=== PATIENT | female | born 1945 | race Caucasian/White ===

== ENCOUNTER 2020-12-08 18:13 | Emergency (ER) | payer OTHER ==
--- OUTSIDE RECORDS SUMMARY | 2020-12-08 18:16 | XMS REPORT | Continuity of Care Document ---
:1945 Author Organization [facility] t Address [address] [place] [address] Care Team Providers Name Role Phone Alec ROBIN Primary Care Physician Unavailable Alec Robin MD Attending Clinician Ari Mcconnell MD Attending Clinician Arminda Stuart Attending Clinician Daksha GRIFFITHS Attending Clinician Ky Mcghee MD Attending Clinician Kai Whitten Attending Clinician Liliana Brizuela MD Attending Clinician Keagan Gonzalez CRNA Attending Clinician DAQUAN Admitting Clinician Unavailable Payers Payer Name Policy Type Policy Effective Date Expiration Date Sour ce Number AETNA MEDICAREAETNA [id number] 2013 MD Julieta rodriguez MEDICARE 00:00:00 [id number] -PresentMedicare AETNA MEDICAREAETNA [id number] 2013 [place] MEDICARE HMO/PPO 00:00:00 Ken keene [id number] -PresentHMO Problems Condition Condition Condition Status Onset Resolution Last Treating Co mments Source Name Details Category Date Date Treatment Clinician Date Trigger Trigger Disease Active [place] finger of finger of 1-09 Meth willa left thumb left thumb 00:00: st 00 Tendinitis Tendinitis Disease Active [place] of finger of finger 09 Meth willa 00:00: st 00 Scar Scar Disease Active conditions conditions 2-27 An derso and and 00:00: n fibrosis fibrosis 00 of skin of skin Stiffness Stiffness Disease Active MD of right of right 2-27 Marcello o shoulder shoulder 00:00: n 00 Pain in Pain in Disease Active MD right right - Anderso shoulder shoulder 00:00: n 00 Generalize Generalize Disease Active M D d muscle d muscle 10-09 [place] o weakness weakness 00:00: n 00 Cervicalgi Cervicalgi Disease Active M D a a 10-09 Anderso 00:00: n 00 Malignant Malignant Disease Active neoplasm neoplasm - [place]o o of of 00:00: n upper-oute upper-oute 00 r quadrant r quadrant of right of right female female breast breast Estrogen Estrogen Disease Active receptor receptor 6- [place] o positive positive 00:00: n status status 00 (ER+) (ER+) Allergies, Adverse Reactions, Alerts Allergy Allergy Status Severity Reaction(s) Onset Inactive Treating Comm ents Source Name Type Date Date Clinician Morphine Propensi Active Other (See Uli wynne ty to Comments) Methodi adverse st reaction s to drug Family History Family Member Diagnosis Comments Start Date Stop Date Source Natural father Diabetes MD Fleming n Maternal aunt -Breast cancer MD Nagel rsdereje Maternal uncle -Genitourinary (Bladder, MD Augustin Kidney, Prostate, Testicle) Natural mother Hypertension Hardy son Natural sister -Endocrine (Thyroid, MD Augustin Pituitary, Adrenal) Social History Social Habit Start Date Stop Date Quantity Comments Source Sex Assigned At MD Armendariz on Tobacco use and 2020-04-30 2020-04-30 Never used MD Armendariz on exposure 00:00:00 00:00:00 Alcohol intake 2020-04-30 2020-04-30 Current drinker of MD Augustin 00:00:00 00:00:00 alcohol (finding) Alcohol Comment 2017-03-28 2017-03-28 occasional Sandy M ethodist 00:00:00 00:00:00 Smoking Status Start Date Stop Date Source Never smoker MD Augustin Medications Ordered Filled Start Stop Current Ordering Indication Dosage Frequency Signature Comments Components Source Medication Medication Date Date Medication? Clinician (SIG) Name Name paresh Yes 1{tbl} Take 1 MD n (LIPITOR) 3-18 tablet by And erso 40 mg 15:43: mouth n tablet 37 daily. clopidogrel Yes 1{tbl} Take 1 MD (PLAVIX) 75 3-18 tablet by And erso mg tablet 15:43: mouth n 37 daily. gabapentin Yes restless 400mg Take 400 MD (NEURONTIN) 3-18 leg mg by Anderso 300 mg 15:43: syndrome mouth 3 n capsule 37 (three) times a day. UNABLE TO Yes 1{capsu Take 1 MD FIND 3-18 le} capsule by Anderso 15:43: mouth n 37 daily. Sinu-Pro 6 UNABLE TO Yes 1{tbl} Take 1 MD FIND 3-18 tablet by Anderso 15:43: mouth n 37 daily. Curaphen-c urcumin UNABLE TO Yes 1{capsu Take 1 MD FIND 3-18 le} capsule by Anderso 15:43: mouth n 37 daily. Mitochondr ial energy booster coenzyme Yes 100mg Take 100 MD Q10 (CO 3-18 mg by AndAlediao Q-10) 100 15:43: mouth n mg capsule 37 daily. glucosam-ch Yes 1{tbl} Take 1 MD ond-hrb 3-18 tablet by Anderso 149-hyal ac 15:43: mouth n (GLUCOS 37 daily. CHOND CPLX ADVANCED) 750 mg-100 mg- 125 mg-1.65 mg tab cholecalcif Yes 1000U Take 1,000 MD marques, 3-18 Units by Anderso vitamin D3, 15:43: mouth n (VITAMIN 37 daily. D3) 1,000 unit capsule celecoxib Yes 50mg Take 50 mg MD (CeleBREX) 3-18 by mouth Hardy so 50 mg 15:43: daily. n capsule 37 traMADol 2020- No 50mg Take 50 mg MD (ULTRAM) 50 9-18 09-18 by mouth And erso mg tablet 15:04: 00:00 twice n 26 :00 daily. anastrozole Yes Infiltratin 1mg Take 1 MD (ARIMIDEX) 9-18 g duct tablet (1 An derso 1 mg tablet 00:00: carcinoma mg) by n 00 of upper mouth outer daily. quadrant of right female breast irbesartan 2019-0 Yes 1{tbl} Take 1 Diaz ston (AVAPRO) 9-10 tablet by Method i 150 MG 10:33: mouth. st tablet 25 gabapentin 2020-0 Yes 300mg [id number] Take 300 Sandy (NEURONTIN) 9-10 [id number] mg by M ethodi 300 mg 10:33: 3D mouth 3 st capsule 25 (three) times a day. gabapentin 2020-0 Yes 400mg Take 400 [place] (NEURONTIN) 9-10 mg by Methodi 300 mg 10:33: mouth. st capsule 25 clopidogreL 2019-0 Yes clopidogre Du (PLAVIX) 75 9-10 l 75 mg Metho di mg tablet 10:33: tablet st 25 traMADoL 2020- No acute pain 50mg Q6H Take 1 Du (ULTRAM) 50 9-10 09-20 tablet (50 M ethodi mg tablet 00:00: 23:59 mg total) st 00 :00 by mouth every 6 (six) hours as needed for moderate pain for up to 10 days .acute pain. anastrozole 2020- No Infiltratin 1mg Take 1 MD (ARIMIDEX) 3-18 09-18 g duct tablet (1 A nderso 1 mg tablet 00:00: 00:00 carcinoma mg) by n 00 :00 of upper mouth outer daily. quadrant of right female breast atorvastati Yes Beulah rodriguez n (LIPITOR) 8-14 Methodi 40 MG 00:00: st tablet 00 clopidogrel Yes Beulah n (PLAVIX) 75 6-15 Methodi mg tablet 00:00: st 00 letrozole Yes 2.5mg Take 2.5 Diaz ston (FEMARA) 3-13 mg by Methodi 2.5 mg 00:00: mouth. st chemo 00 tablet Immunizations Ordered Immunization Filled Immunization Date Status Commen ts Source Name Name PFIZER COVID-19 MRNA 2020-09-29 Completed [place] VACCINATION 00:00:00 [facility] PFIZER COVID-19 MRNA 2020-09-08 Completed [place] VACCINATION 00:00:00 [facility] Vital Signs Vital Name Observation Time Observation Value Comments Source Systolic blood 2020-10-28 15:39:33 128 mm[Hg] MD Angela thompsondereje pressure Diastolic blood 2020-10-28 15:39:33 66 mm[Hg] Julieta derson pressure Heart rate 2020-10-28 15:39:33 84 /min Hardy roth Body temperature 2020-10-28 15:39:33 36.39 Juli Karolina kwonon Respiratory rate 2020-10-28 15:39:33 18 /min MD Turcios cheron Body weight 2020-10-28 15:39:33 82.4 kg Hardy roth BMI 2020-10-28 15:39:33 34.55 kg/m2 Hardy roth Oxygen saturation in 2020-10-28 15:39:33 100 /min MD Augustin Arterial blood by Pulse oximetry Body height 2020-10-28 14:06:00 154.4 cm Hardy roth Systolic blood 2020-04-22 10:15:00 151 mm[Hg] [place] [facility] pressure Diastolic blood 2020-04-22 10:15:00 70 mm[Hg] [place] [facility] pressure Heart rate 2020-04-22 10:15:00 51 /min [place] [facility] Body temperature 2020-04-22 10:15:00 36.06 Juli [place] [facility] Respiratory rate 2020-04-22 10:15:00 15 /min [place] [facility] Oxygen saturation in 2020-04-22 10:15:00 98 /min [place] [facility] Arterial blood by Pulse oximetry Body height 2020-04-22 07:36:00 160 cm [place] [facility] Body weight 2020-04-22 07:36:00 82.827 kg [place] [facility] BMI 2020-04-22 07:36:00 32.35 kg/m2 [place] [facility] Procedures Procedure Date / Time Performing Clinician Source Performed DEXA BONE MINERAL DENSITY 2020-10-28 14:45:53 Nicole Mix MD BOTH HIPS AND SPINE URIC ACID 2020-10-28 14:43:00 Nicole Mix MD Robe rson VITAMIN D 25 HYDROXY LEVEL 2020-10-28 14:43:00 Nicole Mix MD Results CBC 2020-10-28 14:43:00 Nicole Mix MD Robe rson MANUAL DIFFERENTIAL 2020-10-28 14:43:00 Nicole Mix MD GLUCOSE LEVEL 2020-10-28 14:43:00 Nicole Mix MD Robe rson BLOOD UREA NITROGEN 2020-10-28 14:43:00 Nicole Mix MD ELECTROLYTE PANEL 2020-10-28 14:43:00 Nicole Mix MD derson SERUM CREATININE 2020-10-28 14:43:00 Nicole Mix MD And erson .GLOMERULAR FILTRATION RATE 2020-10-28 14:43:00 Nicole Mix MD CALCIUM LEVEL TOTAL 2020-10-28 14:43:00 Nicole Mix MD ALBUMIN LEVEL 2020-10-28 14:43:00 Nicole Mix MD Robe rson ALKALINE PHOSPHATASE 2020-10-28 14:43:00 Nicole Mix MD ALANINE AMINOTRANSFERASE 2020-10-28 14:43:00 Nicole Mix MD ASPARTATE AMINOTRANSFERASE 2020-10-28 14:43:00 Nicole Mix MD TOTAL PROTEIN 2020-10-28 14:43:00 Nicole Mix MD Robe rson FRACTIONATED BILIRUBIN 2020-10-28 14:43:00 Nicole Mix MD COMPLETE BLOOD COUNT W/ 2020-10-28 14:43:00 Nicole Mix MD DIFFERENTIAL COMPREHENSIVE METABOLIC 2020-10-28 14:43:00 Nicole Mix MD PANEL LACTATE DEHYDROGENASE 2020-10-28 14:43:00 Nicole Mix MAGNESIUM LEVEL 2020-10-28 14:43:00 Nicole Mix MD Robe rson PHOSPHORUS LEVEL 2020-10-28 14:43:00 Nicole Mix MD And erson RI AN PERIPHERAL BLOCK 2020-04-22 09:11:59 Compa Gonzalez PROCEDURE FOR PAIN RELEASE, TENDON, HAND, FOR 2020-04-22 09:03:00 Victoriano Mcghee DEQUERVAIN'S TENOSYNOVITIS RI INJECT TENDON 2020-03-30 08:45:00 Victoriano Mcghee Me [facility] SHEATH/LIGAMENT OSI US BREAST 2019-12-17 13:06:00 Lesley Robin MD Hardy son OSI MAMMO BILATERAL 2019-12-17 13:05:45 Lesley Robin MD Plan of Care Planned Activity Planned Date Details Comments Source Future Scheduled 2021-03-13 INFLUENZA VACCINE [place] [facility] Test 00:00:00 [code = INFLUENZA VACCINE] Future Scheduled 2011-12-30 65+ PNEUMOCOCCAL [place] [facility] Test 00:00:00 VACCINE (1 of 1 - PPSV23) [code = 65+ PNEUMOCOCCAL VACCINE (1 of 1 - PPSV23)] Future Scheduled 1996 BREAST CANCER [facility] thodist Test 00:00:00 SCREENING [code = BREAST CANCER SCREENING] Future Scheduled 1996 COLONOSCOPY SCREENING [facility] Test 00:00:00 [code = COLONOSCOPY SCREENING] Future Scheduled 1996 SHINGLES VACCINES (#1) [place] [facility] Test 00:00:00 [code = SHINGLES VACCINES (#1)] Future Scheduled 1964 Hepatitis C screening [place] [facility] Test 00:00:00 (procedure) [code = 324221226] Encounters Start End Encounter Admission Attending Care Care Encounter Source Date/Time Date/Time Type Type Clinicians Facility Department ID 2020-09-29 2020-09-29 Outpatient [facility] [id number] [place] 00:00:00 00:00:[address] 2020-09-08 2020-09-08 Outpatient [facility] [id number] [place] 00:00:00 00:00:[address] 2020-05-04 2020-05-04 Outpatient [facility] [id number] [place] 00:00:00 00:00:00 VICTORIANO [address] 2020-04-22 2020-04-22 Outpatient [facility] [id number] [place] 00:00:00 00:00:00 VICTORIANO [address] 2020-03-30 2020-03-30 Outpatient [facility] [id number] [place] 00:00:00 00:00:00 VICTORIANO [address] 2019-12-03 2019-12-03 Outpatient [facility] [id number] [place] 00:00:00 00:00:00 VICTORIANO [address] Results Test Test Test Results Result Source Description Time Comments Comments OSI US Breast 2020-10- Study acquired at another [facility] institution. For comparison 13:06:08 only. No [facility] originated interpretation requested or available. OSI Mammo 2020-10- Study acquired at another [facility] 23 institution. For comparison 13:05:53 only. No [facility] originated interpretation requested or available. NM Bone Mineral 2020-10- Osteopenia, based on MD Augustin Density Both 18 measurements of the left Hips and Spine 15:16:06 femoral neck. I personally reviewed these image(s) along with the resident's/fellow's interpretations, certify that if a procedure was performed I was physically present, and agree with the final report.Interface, Radiology Results In - 10/28/2020 10:18 AM CDTExamination: Bone Mineral Density (DXA), 10/28/2020linical History: 74-year-old postmenopausal woman with breast cancer on hormone therapy.Indication: Assessment of bone mineral density..Comparison: None.Technique: Bone mineral density was obtained using Hologic dual-energy X-ray absorptiometry.Findings: The findings are provided in the below table(s).FULL RESULT:Bone Density: --Region Exam Date BMD T- Z- g/cm2 Score Score A P Spine (L1-L4) 10/28/2020 0.983 -0.6 1.7 Femoral Neck (Left) 10/28/2020 0.708 -1.3 0.7 Total Hip (Left) 10/28/2020 0.937 0.0 1.7 Femoral Neck (Right) 10/28/2020 0.733 -1.0 1.0 Total Hip (Right) 10/28/2020 0.931 -0.1 1.6 For postmenopausal women and men age 50 and over, the World Health Organization criteria for BMD interpretation classify patients as: Normal (T-score at or above -1.0), Osteopenia (T-score between -1.0 and -2.5), or Osteoporosis (T-score at or below -2.5). IMPRESSION:Osteopenia, based on measurements of the left femoral neck.I personally reviewed these image(s) along with the resident's/fellow's interpretations, certify that if a procedure was performed I was physically present, and agree with the final report. Peripheral 2020-04- Compa Gonzalez CRNA [facility] Block 10 04/22/2020 9:13 [facility] 09:11:59 AMPeripheral BlockPerformed by: Compa Gonzalez CRNAAuthorized by: Paz Brizuela MD Patient Location: [facility] Time: 04/22/2020 9:12 AMEnd Time: 04/22/2020 9:15 AMReason for Block: at surgeon's request Staff: Anesthesiologist: Paz Brizuela MD Resident/CROSS CUT SAWYER/AA: Compa Gonzalez CRNA Performed by: AnesthesiologistPreprocedur e: patient identified, IV checked, site and side verified, risks and benefits discussed, procedure verified, surgical consent complete, patient position confirmed, monitors and equipment checked, pre-op evaluation complete, site marked and timeout performed prior to procedure Peripheral Nerve Block: Patient Position: Supine Prep: alcohol swabs Monitoring: Heart rate, CO2, blood pressure monitoring and continuous pulse oximetryBlock Type: [place] blockLaterality: LeftInjection Technique: Single injectionNeedle: Needle Gauge: 22 GAssessment: Injection Assessment: No symptoms of intraneural/intravenous injection Paresthesia Pain: None Heart Rate Change: No Slow Fractionated Injection: Yes Block outcome: No apparent complications, patient comfortable and patient tolerated procedure wellNotes: L-UE ESMARC EXSANG/TOOUR UPX2/IV LIDOCAINE Hand/Upper Victoriano Mcghee MD [facility] ton Extremity 18 03/30/2020 8:51 [facility] Injection/Arthr 08:45:00 AMHand/Upper Extremity ocentesis: L Injection/Arthrocentesis: L extensor extensor compartment compartment 1 1Date/Time: 03/30/2020 8:50 AMConsent given by: patientSupporting DocumentationIndications: pain Procedure DetailsSite: L extensor compartment 1 Left side:Needle size: 25 GApproach: lateralPatient tolerance: patient tolerated the procedure well with no immediate complicationsLeft Extensor Compartment 1 Medications administered:1 mL lidocaine 10 mg/mL (1 %); 6 mg betamethasone acetate & sodium phosphate 6 mg/mL
--- NOTE | 2020-12-08 19:29 | RAD REPORT ---
EXAM DESCRIPTION: CT - [id number] - 12/08/2020 7:01 pm CLINICAL HISTORY: Trauma, head and neck injury. fall COMPARISON: [id number] dated 02/11/2012 TECHNIQUE: Axial 5 mm thick images of the head were obtained. Axial 2 mm thick images of the cervical spine were obtained with sagittal and coronal reconstruction images generated and reviewed. All CT scans are performed using dose optimization technique as appropriate and may include automated exposure control or mA/KV adjustment according to patient size. FINDINGS: CT HEAD WITHOUT CONTRAST: No acute hemorrhage, hydrocephalus or extra-axial collection is identified.No areas of brain edema or midline shift. The paranasal sinuses and mastoids are clear.The calvarium is intact. CT CERVICAL SPINE WITHOUT CONTRAST: No fracture or subluxation.Moderate midcervical degenerative changes.No prevertebral soft tissues swe lling is identified. IMPRESSION: No acute intracranial or cervical spine findings.
--- NOTE | 2020-12-08 19:44 | RAD REPORT ---
EXAM DESCRIPTION: RAD - Shoulder Right 2 View - 12/08/2020 7:38 pm CLINICAL HISTORY: fall COMPARISON: No comparisons FINDINGS: Mild AC joint and glenohumeral joint arthritic changes are present. No acute fracture or d islocation seen.
--- NOTE | 2020-12-08 19:48 | RAD REPORT ---
EXAM DESCRIPTION: RAD - Elbow Right 3 View - 12/08/2020 7:38 pm CLINICAL HISTORY: fall Trauma, fall COMPARISON: No comparisons FINDINGS: No acute fracture or dislocation seen.
--- NOTE | 2020-12-08 20:24 | ER ---
Nurse's Notes [facility] Name: Maribell Galindo Age: 74 yrs Sex: Female : 1945 Arrival Date: 12/08/2020 Time: 18:17 Bed 8 Private MD: Diagnosis: Strain of muscle(s) and tendon(s) of the rotator cuff of shoulder;Unspecified injury of head Presentation: 12/08 18:42 Chief complaint: Patient states: tripped on carpet about 1 hour ago, reports landing on em the right shoulder and hitting head, also reports neck pain, pt takes Plavix for prior CVA, denies dizziness or blurred vision. Coronavirus screen: Client denies travel out of the [place] in the last 14 days. Ebola Screen: Patient negative for fever greater than or equal to 101.5 degrees Fahrenheit, and additional compatible Ebola Virus Disease symptoms Patient denies exposure to infectious person. Patient denies travel to an Ebola-affected area in the 21 days before illness onset. No symptoms or risks identified at this time. Initial Sepsis Screen: Does the patient meet any 2 criteria? No. Patient's initial sepsis screen is negative. Does the patient have a suspected source of infection? No. Patient's initial sepsis screen is negative. Risk Assessment: Do you want to hurt yourself or someone else? Patient reports no desire to harm self or others. Onset of symptoms was December 08, 2020. 18:42 Method Of Arrival: Ambulatory em 18:42 Acuity: BINTA 3 em 18:50 Care prior to arrival: None. Mechanism of Injury: Fall from standing position. Trauma sv event details: Injury occurred in the [facility], Injury occurred: at home. Injury occurred: December 08, 2020. Trauma Activation: Alert Physician: ED Physician; Name: Billy SANCHEZ; Notified At: 18:46; Arrived At: 18:49 Physician: General Surgeon; Name: ; Notified At: 18:46; Arrived At: Physician: Radiology; Name: Yuko; Notified At: 18:46; Arrived At: 18:49 Physician: Respiratory; Name: ; Notified At: 18:46; Arrived At: Physician: Nahum; Name: ; Notified At: 18:46; Arrived At: Historical: - Allergies: 18:45 Morphine (Respiratory distress); em - Home Meds: 18:45 Plavix 75 mg Oral tab 1 tab once daily for Myocardial Infarction Prevention [Active]; em - PMHx: 18:45 Hyperlipidemia; Hypertension; neuropathy pain; CVA; em - PSHx: 18:45 Hysterectomy; Carpal Tunnel Repair; back surgery; em - Immunization history:: Adult Immunizations up to date. - Social history:: Smoking status: Patient denies any tobacco usage or history of. - Immunization history: Last tetanus immunization: unknown. Screenin:12 Abuse screen: Denies threats or abuse. Nutritional screening: No deficits noted. vg1 Tuberculosis screening: No symptoms or risk factors identified. Fall Risk Fall in past 12 months (25 points). No secondary diagnosis (0 pts). No IV (0 pts). Ambulatory Aid- None/Bed Rest/Nurse Assist (0 pts). Gait- Normal/Bed Rest/Wheelchair (0 pts) Mental Status- Oriented to own ability (0 pts). Total Andrade Fall Scale indicates Low Risk Score (25-44 pts). Fall prevention measures have been instituted. Side Rails Up X 2 Placed close to Nursing Station 1:1 attendant Assigned to Pt. Family Present and informed to notify staff if they need to leave bedside. Primary Survey: 19:13 NO uncontrolled hemorrhage observed. Breathing/Chest: Respiratory pattern: regular, vg1 Respiratory effort: spontaneous. Circulation: Pulses: palpable right radial artery and left radial artery. Disability Alert. 21:00 Exposure/Environment: All clothing and personal items were removed. Forensic evidence wh collection is not deemed to be indicated at this time. Items placed in patient belonging bag. There is no evidence of uncontrolled external bleeding. No obvious injuries are noted at this time. Reassessment Airway Airway Patent Breathing/Chest Respiratory pattern Regular Respiratory effort Spontaneous Unlabored Chest inspection Symmetrical Circulation Color Geiger Disability Alert. Assessment: 18:52 Reassessment: Xray at the bedside. sv 19:10 General: Appears in no apparent distress. uncomfortable, Behavior is calm, cooperative. vg1 Pain: Complains of pain in Right Shoulder and right side of neck Pain currently is 10 out of 10 on a pain scale. Pain began 1 hour ago. Alleviated by rest, Aggravated by repositioning. Neuro: Level of Consciousness is awake, alert, obeys commands, Oriented to person, place, time, situation, Denies blurred vision dizziness, headache. Cardiovascular: Patient's skin is warm and dry. Respiratory: Airway is patent Respiratory effort is even, unlabored. GI: No signs and/or symptoms were reported involving the gastrointestinal system. : No signs and/or symptoms were reported regarding the genitourinary system. EENT: No signs and/or symptoms were reported regarding the EENT system. Derm: Skin is intact, is healthy with good turgor. Musculoskeletal: Circulation, motion, and sensation intact. 20:09 Reassessment: Patient appears in no apparent distress at this time. No changes from vg1 previously documented assessment. Patient and/or family updated on plan of care and expected duration. Pain level reassessed. Patient is alert, oriented x 3, equal unlabored respirations, skin warm/dry/pink. 20:59 Reassessment: Patient appears in no apparent distress at this time. Patient and/or wh family updated on plan of care and expected duration. Pain level reassessed. Patient is alert, oriented x 3, equal unlabored respirations, skin warm/dry/pink. Vital Signs: 18:42 BP 163 / 87; Pulse 63; Resp 20; Temp 97.2; Pulse Ox 100% on R/A; Weight 79.38 kg; em Height 5 ft. 0 in. (152.40 cm); Pain 4/10; 19:11 BP 135 / 77; Pulse 63; Resp 18; Pulse Ox 99% on R/A; vg1 20:59 BP 135 / 79; Pulse 60; Resp 18; Pulse Ox 98% on R/A; wh 18:42 Body Mass Index 34.18 (79.38 kg, 152.40 cm) em [place] Coma Score: 18:42 Eye Response: spontaneous(4). Verbal Response: oriented(5). Motor Response: obeys sv commands(6). Total: 15. Trauma Score (Adult): 18:42 Eye Response: spontaneous(1); Verbal Response: oriented(1); Motor Response: obeys sv commands(2); Systolic BP: > 89 mm Hg(4); Respiratory Rate: 10 to 29 per min(4); [place] Score: 15; Trauma Score: 12 ED Course: 18:17 Patient arrived in ED. mr 18:44 Triage completed. em 18:45 Arm band placed on. em 18:46 Billy Vergara PA is PHCP. [facility] 18:46 Israel Faustin MD is Attending Physician. [facility] 18:52 Yuko Dan, RN is Primary Nurse. vg1 18:[address] via stretcher. vg1 19:01 CT Head C Spine In Process Unspecified. EDMS 19:12 Patient has correct armband on for positive identification. Bed in low position. Call vg1 light in reach. Side rails up X2. Adult w/ patient. 19:12 Patient maintains SpO2 saturation greater than 95% on room air. vg1 19:38 Shoulder Right (2 View) XRAY In Process Unspecified. EDMS 19:38 Elbow Right 3 View XRAY In Process Unspecified. EDMS 20:59 No provider procedures requiring assistance completed. Patient did not have IV access wh during this emergency room visit. 21:02 Thermoregulation: warm blanket given to patient. Administered Medications: No medications were administered Intake: 18:42 PO: 0ml; Total: 0ml. sv Output: 18:42 Urine: 0ml; Total: 0ml. sv Outcome: 20:24 Discharge ordered by . [facility] 21:02 Discharged to home ambulatory, with family. 21:02 Condition: stable 21:02 Discharge instructions given to patient, family, Instructed on discharge instructions, follow up and referral plans. medication usage, POC Demonstrated understanding of instructions, follow-up care, medications, POC Prescriptions given X 1. 21:02 Patient's length of stay was not longer than 2 hours. 21:02 Patient left the ED. Signatures: Dispatcher [employer] EDMS Angelina Ellington, Billy Conrad RN, PA PA jmm Rivera, Mary Tomy Nguyen, Brigitte Kaur RN, RN RN wh Garcia, Victoria, FRANCIA RN 1
--- NOTE | 2020-12-08 20:25 | EDPHYS ---
Physician Documentation [facility] Name: Maribell Galindo Age: 74 yrs Sex: Female : 1945 Arrival Date: 12/08/2020 Time: 18:17 Bed 8 Private MD: ED Physician Israel Faustin HPI: 12/08 18:50 This 74 yrs old Female presents to ER via Ambulatory with complaints of Fall jmm Injury, Arm Pain. 18:50 Details of fall: The patient fell from an upright position. Onset: The symptoms/episode jmm began/occurred acutely, just prior to arrival. Associated injuries: The patient sustained injury to the head, right shoulder. The patient has not experienced similar symptoms in the past. This is a 74 year old female with a history of hlp, htn, cva that presents ot the ED with complaints of right sided headache. Patient states she landed on the right sided shoulder pain. Denies other injury. . Historical: - Allergies: 18:45 Morphine (Respiratory distress); em - Home Meds: 18:45 Plavix 75 mg Oral tab 1 tab once daily for Myocardial Infarction Prevention [Active]; em - PMHx: 18:45 Hyperlipidemia; Hypertension; neuropathy pain; CVA; em - PSHx: 18:45 Hysterectomy; Carpal Tunnel Repair; back surgery; em - Immunization history:: Adult Immunizations up to date. - Social history:: Smoking status: Patient denies any tobacco usage or history of. - Immunization history: Last tetanus immunization: unknown. ROS: 18:50 Constitutional: Negative for fever, chills, and weight loss, Cardiovascular: Negative jmm for chest pain, palpitations, and edema, Respiratory: Negative for shortness of breath, cough, wheezing, and pleuritic chest pain. 18:50 MS/extremity: Positive for injury or acute deformity. 18:50 Neuro: Positive for headache. 18:50 All other systems are negative. Exam: 18:50 Constitutional: This is a well developed, well nourished patient who is awake, alert, jmm and in no acute distress. Head/Face: atraumatic. Eyes: EOMI, no conjunctival erythema appreciated ENT: Moist Mucus Membranes Neck: Trachea midline, Supple Chest/axilla: Normal chest wall appearance and motion. Cardiovascular: Regular rate and rhythm. No edema appreciated Respiratory: Normal respirations, no respiratory distress appreciated Abdomen/GI: Non distended, soft Back: Normal ROM Skin: General appearance color normal 18:50 Musculoskeletal/extremity: ROM: limited active range of motion due to pain, Circulation is intact in all extremities. 18:50 Skin: Appearance: Color: normal in color. 18:50 Neuro: Orientation: is normal, Mentation: is normal, Memory: is normal. 18:50 Psych: Behavior/mood is pleasant, cooperative. Vital Signs: 18:42 BP 163 / 87; Pulse 63; Resp 20; Temp 97.2; Pulse Ox 100% on R/A; Weight 79.38 kg; em Height 5 ft. 0 in. (152.40 cm); Pain 4/10; 19:11 BP 135 / 77; Pulse 63; Resp 18; Pulse Ox 99% on R/A; vg1 20:59 BP 135 / 79; Pulse 60; Resp 18; Pulse Ox 98% on R/A; wh 18:42 Body Mass Index 34.18 (79.38 kg, 152.40 cm) em [place] Coma Score: 18:42 Eye Response: spontaneous(4). Verbal Response: oriented(5). Motor Response: obeys sv commands(6). Total: 15. Trauma Score (Adult): 18:42 Eye Response: spontaneous(1); Verbal Response: oriented(1); Motor Response: obeys sv commands(2); Systolic BP: > 89 mm Hg(4); Respiratory Rate: 10 to 29 per min(4); Becca Score: 15; Trauma Score: 12 MDM: 18:50 Patient medically screened. amanda 20:23 Data reviewed: vital signs, nurses notes. Counseling: I had a detailed discussion with amanda the patient and/or guardian regarding: the historical points, exam findings, and any diagnostic results supporting the discharge/admit diagnosis, lab results, radiology results, the need for outpatient follow up, to return to the emergency department if symptoms worsen or persist or if there are any questions or concerns that arise at home. 12/08 18:51 Order name: Shoulder Right (2 View) XRAY; Complete Time: 19:49 nolan 12/08 18:51 Order name: Elbow Right 3 View XRAY; Complete Time: 19:53 nolan 12/08 18:51 Order name: CT Head C Spine; Complete Time: 19:31 [facility] Administered Medications: No medications were administered Disposition: 23:51 Co-signature as Attending Physician, Israel Faustni MD. truman Disposition: 12/08/20 20:24 Discharged to Home. Impression: Strain of muscle(s) and tendon(s) of the rotator cuff of shoulder, Unspecified injury of head. - Condition is Stable. - Discharge Instructions: Head Injury, Adult, Shoulder Pain. - Prescriptions for orphenadrine citrate 100 mg Oral Tablet Sustained Release - take 1 tablet by ORAL route 2 times per day As needed; 20 tablet. - Medication Reconciliation Form, Thank You Letter, Antibiotic Education, Prescription Opioid Use form. - Follow up: Private Physician; When: 2 - 3 days; Reason: Recheck today's complaints, Continuance of care, Re-evaluation by your physician. Signatures: Dispatcher [employer] Israel Lopez MD MD pkl Mickail, Joel, PA PA jmm Munoz, Edgar, Brigitte Kaur RN, RN RN Corrections: (The following items were deleted from the chart) 20:54 20:06 Sling ordered. [facility] 21:02 20:24 12/08/2020 20:24 Discharged to Home. Impression: Strain of muscle(s) and wh tendon(s) of the rotator cuff of shoulder; Unspecified injury of head. Condition is Stable. Forms are Medication Reconciliation Form, Thank You Letter, Antibiotic Education, Prescription Opioid Use. Follow up: Private Physician; When: 2 - 3 days; Reason: Recheck today's complaints, Continuance of care, Re-evaluation by your physician. [facility]
[2020-12-08 21:06] VITALS: TEMP 97.2
[2020-12-08 21:09] VITALS: BP 135/79; O2SAT 98
== END 2020-12-08 21:02 | disposition home or self-care (01) ==
LOC: ER 18:13
DX: S46.011A Strain of muscle(s) and tendon(s) of the rotator cuff of right shoulder, initial encounter (principal); S09.90XA Unspecified injury of head, initial encounter; I10 Essential (primary) hypertension; W18.30XA Fall on same level, unspecified, initial encounter; Z79.01 Long term (current) use of anticoagulants; Z86.73 Personal history of transient ischemic attack (TIA), and cerebral infarction without residual deficits; Z88.5 Allergy status to narcotic agent
CPT/HCPCS: 70450; 72125; 99284; G0390

== ENCOUNTER 2023-12-01 10:21 | Emergency (ER) | payer OTHER ==
--- OUTSIDE RECORDS SUMMARY | 2023-12-01 10:25 | XMS REPORT | Clinical Summary ---
Author Name Unknown Organization [facility] [place] Address [address] [place] [address] Care Team Providers Care Collar Baster Name Role Phone Atul Villa MD Unavailable + [phone] Lesley Robin MD Primary Care Provider + [phone] Lesley Robin MD Unavailable [phone] Jericho Glover MD Unavailable [phone] María Dinero APRN Unavailable [phone] Yenifer Young MD Unavailable [phone] Allergies Active Allergy Reactions Criticality Noted Date Comments Morphine High 01/17/2016 Severe low blood pressure-patient passes out Medications Medication Sig Dispensed Refills Start Date End Date Status atorvastatin (LIPITOR) 40 mg tablet Take 1 tablet (40 mg) by mouth daily. 0 Active clopidogrel (PLAVIX) 75 mg tablet Take 1 tablet (75 mg) by mouth daily. 0 Active gabapentin (NEURONTIN) 300 mg capsuleIndications:re stless leg syndrome Take 400 mg by mouth 3 (three) times a day. 0 Active celecoxib (CeleBREX) 50 mg capsule Take 2 capsules (100 mg) by mouth daily. 0 Active amLODIPine (NORVASC) 5 mg tablet Take 1 tablet (5 mg) by mouth daily. 0 06/01/2021 Active bisoprolol (ZEBETA) 5 mg tablet Take 1 tablet (5 mg) by mouth daily. 0 05/25/2021 Active rosuvastatin (CRESTOR) 40 mg tablet Take 1 tablet (40 mg) by mouth daily. 0 Active ascorbic acid (VITAMIN C) 500 mg tablet Take 1 tablet (500 mg) by mouth daily. 0 Active cholecalciferol, vitamin D3, (VITAMIN D3) 5,000 units tab tablet Take 400 Units by mouth daily. 0 Active zinc 50 mg tab Take by mouth daily. 0 Active uv-bd-bq5-dha-epa-fsh -flx-lact 133 mg-167 mg- 170 mg cap Take by mouth daily. 0 Active glucosamine-chondroit in 500-400 mg tablet Take 1 tablet by mouth daily. 0 Active coenzyme Q10 100 mg capsule Take 100 mg by mouth daily. 0 Active vit C/E/Zn/coppr/lutein/z eaxan (PRESERVISION AREDS-2 ORAL) Take by mouth daily. 0 Active magnesium 250 mg tab Take 525 mg by mouth daily. 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 01/31/2016 Cancer Staging:Pathologic stage from 02/10/2016:Stage IA(T1c, N0(i-), cM0) - Signed by Lesley Robin MD on 04/14/2016 Clinical stage from 03/14/2016:Stage IA(T1c, N0, M0) - Signed by Lesley Robin MD on 03/14/2016 Estrogen receptor positive status (ER+) 01/31/20 16 Encounters Date Type Department Care Team Description 03/30/2023 10:40 AM CDT Follow-Up MD Charli Hooks - Survivorship [address] [place] [id number] María Dinero, MERCHANDISING EXECUTION ASSOCIATE Personal history of malignant neoplasm of breast 03/30/2023 10:10 AM CDT Ancillary Procedure MD Charli Edwards [address] [address] María Dinero, MERCHANDISING EXECUTION ASSOCIATE Personal history of malignant neoplasm of breast 03/30/2023 9:05 AM CDT Ancillary Procedure MD Charli Edwards [address] [address] Potter, María P, MERCHANDISING EXECUTION ASSOCIATE Personal history of malignant neoplasm of breast 03/30/2023 Travel after 12/01/2022 Surgical History Surgery Date Site/Laterality Comments BACK SURGERY 08/13/2002 - 08/12/2003 COLONOSCOPY 08/13/2013 - 08/12/2014 CARPAL TUNNEL RELEASE Right about 10 years ago OOPHORECTOMY age 34 HYSTERECTOMY ? 34 y/o; secondary to endometriosis Medical History Medical History Date Comments Hypertension Personal history of stroke 04/18/2006 pt wa s paralyzed, followed with a neurologist x 1 then was released Hyperlipidemia Restless leg syndrome Spasmodic torticollis Malignant neoplasm of upper- outer quadrant of right female breast 01/31/2016 Family History Medical History Relation Name Comments Diabetes Father Eliceo Rodriguez -Breast cancer Maternal Aunt Susannah Barrett in her 60s -70s -Genitourinary (Bladder, Kidney, Prostate, Testicle) Maternal Uncle Alfonso White Jr. Bladder canc er: 80 y/o Hypertension Mother Marjan Rodriguez -Endocrine (Thyroid, Pituitary, Adrenal) Sister An Rodriguez in her 50s Relation Name Status Comments Father Eliceo Rodriguez Maternal Aunt Susannah Barrett Maternal Uncle Alfonso White Jr. Mother Marjan Rodriguez Sister An Rodriguez Social History Tobacco Use Types Packs/Day Years Used Date Smoking Tobacco: Never Smokeless Tobacco: Never Alcohol Use Standard Drinks/Week Comments Yes 0 (1 standard drink = 0.6 oz pur e alcohol) Sex and Gender Information Value Date Recorded Sex Assigned at Not on file Gender Identity Not on file Sexual Orientation Not on file Job Start Date Occupation Industry Not on file Not on file Not on file Obstetrics History Para Term AB IAB SAB Ectopic Multiple Livin g Live Births 3 3 2 1 3 Date Outcome GA Total Labor Labor/2nd/3rd Weight Sex Delivery Anes PTL Kelin A1 A5 Name Cl in Term Term Comments Menstrual cycle started at a ge 11-12. Parity: 19 control pills between second and third child (~5-6 yrs) Post- hysterectomy-took hormones for ~1yr Breast feeding: None HRT Use x 1-2 years Fertility treatments: Denies Last Filed Vital Signs Vital Sign Reading Time Taken Comments Blood Pressure 145/78 03/30/2023 10:35 AM CDT Pulse 59 03/30/2023 10:35 AM CDT Temperature 36.7 C (98.1 F) 03/30/2023 10:35 AM C DT Respiratory Rate 16 03/30/2023 10:35 AM CDT Oxygen Saturation 96% 03/30/2023 10:35 AM CDT Inhaled Oxygen Concentration - - Weight 89 kg (196 lb 3.4 oz) 03/30/2023 10:35 AM CDT Height - - Body Mass Index 37.32 10/28/2020 9:06 AM CDT Plan of Treatment Upcoming Encounters Date Type Department Care Team Description 03/31/2024 8:30 AM CDT Ancillary Procedure MD Charli Edwards [address] [id number] María Dinero, MERCHANDISING EXECUTION ASSOCIATE [address] [place] [address] 04/04/2024 9:35 AM CDT Ancillary Procedure MD Charli Edwards [address] [address] María Dinero, MERCHANDISING EXECUTION ASSOCIATE [address] [place] [address] 04/04/2024 11:00 AM CDT Follow-Up MD Charli [place] - Survivorship [address] [place] [id number] María Dinero, MERCHANDISING EXECUTION ASSOCIATE [address] [place] [address] Health Maintenance Due Date Last Done Comments COVID-19 Vaccine ( season) 2023, 09/08/2020 Influenza Vaccine 04/13/2023 Procedures Procedure Name Priority Date/Time Associated Diagnosis Comments DEXA BONE MINERAL DENSITY BOTH HIPS AND SPINE Routine 03/30/2023 10:23 AM CDT Personal history of malignant neoplasm of breast MAMMO DIGITAL SCREENING BILATERAL W DAVID Routine 03/30/2023 9:32 AM CDT Personal history of malignant neoplasm of breast after 12/01/2022 Results * NM Bone Mineral Density Both Hips and Spine (03/30/2023 10:23 AM CDT) Anatomical Region Laterality Modality Spine Nuclear Medicine 03/30/2023 10:2 4 AM CDT Impressions 03/30/2023 12:11 PM CDT 1. Osteopenia based on measurements of the right femoral neck. 2. Significant interval increase in bone mass in the lumbar spine and left total hip. I personally reviewed these image(s) along with the resident's/fellow's interpretations, certify that if a procedure was performed I was physically present, and agree with the final report. Narrative 03/30/2023 12:11 PM CDT FULL RESULT: Examination: Bone Mineral Density (DXA), 03/30/2023 12:00 AM Clinical History: 77-year-old postmenopausal female treated for breast cancer. Indication: Assessment of bone mineral density. Comparison: 10/28/2020 Technique: Bone mineral density was obtained using Hologic dual-energy X-ray absorptiometry. Findings: The findings are provided in the below table(s). Bone Density: Region Exam Date BMD T- Z- g/cm2 Score Score AP Spine (L1-L4) 03/30/2023 1.064 0.2 2.6 Femoral Neck (Left) 03/30/2023 0.749 -0.9 1.2 Total Hip (Left) 03/30/2023 0.974 0.3 2.1 Femoral Neck (Right) 03/30/2023 0.701 -1.3 0.8 Total Hip (Right) 03/30/2023 0.935 -0.1 1.8 For postmenopausal women and men age 50 and over, the World Health Organization criteria for BMD interpretation classify patients as: Normal (T-score at or above -1.0), Osteopenia (T-score between -1.0 and -2.5), or Osteoporosis (T-score at or below -2.5). Previous Exams: Region Exam Age BMD T-score BMD Change vs Date g/cm2 Baseline Previous AP Spine (L1-L4) 03/30/2023 77 1.064 0.2 8.3%* 8.3%* 10/28/2020 74 0.983 -0.6 Total Hip(Left) 03/30/2023 77 0.974 0.3 3.9%* 3.9%* 10/28/2020 74 0.937 0.0 Femoral Neck(Left) 03/30/2023 77 0.749 -0.9 5.9% 5.9% 10/28/2020 74 0.708 -1.3 Total Hip(Right) 03/30/2023 77 0.935 -0.1 0.5% 0.5% 10/28/2020 74 0.931 -0.1 Femoral Neck(Right) 03/30/2023 77 0.701 -1.3 -4.3% -4.3% 10/28/2020 74 0.733 -1.0 *Denotes significance at 95% confidence level, site specific LSC for AP Spine = 0.029 g/cm2, site specific LSC for Total Hip = 0.033 g/cm2, site specific LSC for Femoral Neck = 0.045 g/cm2, LSC for 1/3 Forearm = 0.023 g/cm2 Procedure Note Renu Sheikh MD - 03/30/2023 FULL RESULT: Examination: Bone Mineral Density (DXA), 03/30/2023 12:00 AM Clinical History: 77-year-old postmenopausal female treated for breastcancer. Indication: Assessment of bone mineral density. Comparison: 10/28/2020 Technique: Bone mineral density was obtained using Hologic fpqs-[id number]-iky absorptiometry. Findings: The findings are provided in the below table(s). Bone Density: Region Exam Date BMD T- Z- g/cm2 Score Score AP Spine (L1-L4) 03/30/2023 1.064 0.2 2.6 Femoral Neck (Left) 03/30/2023 0.749 -0.9 1.2 Total Hip (Left) 03/30/2023 0.974 0.3 2.1 Femoral Neck (Right) 03/30/2023 0.701 -1.3 0.8 Total Hip (Right) 03/30/2023 0.935 -0.1 1.8 For postmenopausal women and men age 50 and over, the World Health Organization criteria for BMD interpretation classify patients as: Normal (T-score at or above -1.0), Osteopenia (T-score between -1.0 and -2.5), or Osteoporosis (T-score at or below -2.5). Previous Exams: Region Exam Age BMD T-score BMD Change vs Date g/cm2 Baseline Previous AP Spine (L1-L4) 03/30/2023 77 1.064 0.2 8.3%* 8.3%* 10/28/2020 74 0.983 -0.6 Total Hip(Left) 03/30/2023 77 0.974 0.3 3.9%* 3.9%* 10/28/2020 74 0.937 0.0 Femoral Neck(Left) 03/30/2023 77 0.749 -0.9 5.9% 5.9% 10/28/2020 74 0.708 -1.3 Total Hip(Right) 03/30/2023 77 0.935 -0.1 0.5% 0.5% 10/28/2020 74 0.931 -0.1 Femoral Neck(Right) 03/30/2023 77 0.701 -1.3 -4.3% -4.3% 10/28/2020 74 0.733 -1.0 *Denotes significance at 95% confidence level, site specific LSC for APSpine = 0.029 g/cm2, site specific LSC for Total Hip = 0.033 g/cm2, sitespecific LSC for Femoral Neck = 0.045 g/cm2, LSC for 1/3 Forearm = 0.023 g/cm2 IMPRESSION: 1. Osteopenia based on measurements of the right femoral neck. 2. Significant interval increase in bone mass in the lumbar spine and lefttotal hip. I personally reviewed these image(s) along with the resident's/fellow'sinterpretations, certify that if a procedure was performed I wasphysically present, and agree with the final report. María Dinero APRN [facility] DXA ORDERABLES * Mammography Digital Screening Bilateral with David (03/30/2023 9:32 AM CDT) Anatomical Region Laterality Modality Breast Bilateral Mammography 03/30/2023 9:35 AM CDT Impressions 03/30/2023 9:35 AM CDT There is no mammographic evidence of malignancy. Follow-up mammogram in 1 year is recommended. BI-RADS Category 2: Benign Finding(s) Narrative 03/30/2023 9:35 AM CDT CLINICAL INDICATION: Patient is a 77 year old female and is seen for screening. MAMMO DIGITAL SCREENING BILATERAL W DAVID Digital Mammogram evaluated with Computer Aided Detection (CAD). COMPARISON: The present examination has been compared to prior imaging studies performed at an outside location on 09/18/2017, 03/27/2018 and 12/17/2019, and at [facility] on 12/27/2020 and 12/23/2021. FINDINGS: The breasts are heterogeneously dense, which may obscure small masses. 1: There is a post surgical scar with associated fat necrosis calcifications and surgical clips in the posterior upper outer region of the right breast. 2: There are benign appearing calcifications with diffuse/scattered distribution in both breasts. No dominant mass, distortion, or suspicious calcifications are identified. Tomosynthesis performed in CC and MLO projections. Procedure Note Raymond Gillis MD - 03/30/2023 CLINICAL INDICATION: Patient is a 77 year old female and is seen for screening. MAMMO DIGITAL SCREENING BILATERAL W DAVID Digital Mammogram evaluated with Computer Aided Detection (CAD). COMPARISON: The present examination has been compared to prior imaging studiesperformed at an outside location on 09/18/2017, 03/27/2018 and 12/17/2019, and at [facility] on 12/27/2020 and 12/23/2021. FINDINGS: The breasts are heterogeneously dense, which may obscure small masses. 1: There is a post surgical scar with associated fat necrosiscalcifications and surgical clips in the posterior upper outer region of the rightbreast. 2: There are benign appearing calcifications with diffuse/scattered distribution in both breasts. No dominant mass, distortion, or suspicious calcifications areidentified. Tomosynthesis performed in CC and MLO projections. IMPRESSION: There is no mammographic evidence of malignancy. Follow-up mammogram in 1 year is recommended. BI-RADS Category 2: Benign Finding(s) María Dinero APRN IMG MAMMOGRAPHY ORDE ADWOA after 12/01/2022 Care Teams Collar Baster Relationship Specialty Start Date End Date Atul Villa MD [address] [place] [id number] PCP - External Referring Internal Medicine 01/11/16 Lesley Robin MD [address] [place] [address] PCP - General Surgical Oncology 02/18/16 Lesley Robin MD [address] [place] [address] Surgeon Surgical Oncology 02/18/16 Jericho Glover MD [address] [place] [address] Physician Medical Oncology 02/18/16 María Dinero APRN [address] [place] [id number] Nurse Practitioner Breast Medical Oncology 12/23/21 Yenifer Young MD [address] [place] [id number] Consulting Physician Radiation Oncology 02/21/16
[2023-12-01] MEDS ORDERED: dexAMETHasone 10 MG/ML VIAL ONE (10:45)
[2023-12-01] MEDS ORDERED: TRAMADOL HCL 50 MG TAB ONE (10:45)
--- NOTE | 2023-12-01 12:41 | RAD REPORT ---
EXAM DESCRIPTION: RAD - Wrist Left 3 View - 12/01/2023 10:45 am CLINICAL HISTORY: PAIN COMPARISON: No comparisons TECHNIQUE: Left wrist, 3 views. FINDINGS: No acute fracture. There is no dislocation or periosteal reaction noted. Mild negative uln ar variance. Mild degenerative carpal changes. No suspicious bony finding. No foreign body or other s oft tissue abnormality. IMPRESSION: No acute osseous abnormality. Mild degenerative changes.
--- NOTE | 2023-12-01 12:47 | ER ---
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 Coronavirus screen: At this time, the client does not indicate any symptoms associated with coronavirus-19. Ebola Screen: Patient negative for fever greater than or equal to 101.5 degrees Fahrenheit, and additional compatible Ebola Virus Disease symptoms Patient denies exposure to infectious person. Patient denies travel to an Ebola-affected area in the 21 days before illness onset. No symptoms or risks identified at this time. Initial Sepsis Screen: Does the patient meet any 2 criteria? No. Patient's initial sepsis screen is negative. Does the patient have a suspected source of infection? No. Patient's initial sepsis screen is negative. Risk Assessment: Do you want to hurt yourself or someone else? Patient reports no desire to harm self or others. Onset of symptoms was November 30, 2023. 10:35 Method Of Arrival: Ambulatory iw 10:35 Acuity: BINTA 4 iw Historical: - Allergies: 10:36 Morphine (Respiratory distress); iw - PMHx: 10:36 Hyperlipidemia; CVA; Hypertension; Myocardial infarction; neuropathy pain; iw - Immunization history:: Adult Immunizations. - Infectious Disease History:: Denies. - Social history:: Smoking status: Patient denies any tobacco usage or history of. Screenin:55 [facility] ED Fall Risk Assessment (Adult) History of falling in the last 3 months, cp4 including since admission No falls in past 3 months (0 pts) Confusion or Disorientation No (0 pts) Intoxicated or Sedated No (0 pts) Impaired Gait No (0 pts) Mobility Assist Device Used No (0 pt) Altered Elimination No (0 pt) Score/Fall Risk Level 0 - 2 = Low Risk Oriented to surroundings, Maintained a safe environment, Assessed \T\ reinforced patient's understanding of fall precautions, Hourly rounding (assess needs \T\ fall precautionary measures) done. Abuse screen: Denies threats or abuse. Nutritional screening: No deficits noted. Tuberculosis screening: No symptoms or risk factors identified. Assessment: 10:55 General: Appears uncomfortable, Behavior is calm, cooperative, appropriate for age. cp4 Pain: Complains of pain in left wrist Pain currently is 10 out of 10 on a pain scale. 10:55 Musculoskeletal: Reports pain in left wrist. cp4 Vital Signs: 10:35 BP 161 / 105; Pulse 71; Resp 16; Temp 97.3; Pulse Ox 99% on R/A; Pain 10/10; iw 12:00 BP 128 / 64; Pulse 58; Resp 18; Pulse Ox 100% ; cp4 10:35 Pain Scale: Adult iw ED Course: 10:23 Patient arrived in ED. mr 10:23 Atul Villa MD is Private Physician. mr 10:24 [facility] 10:24 Magnus Albright MD is Attending Physician. jh7 10:36 Triage completed. iw 10:36 Arm band placed on. iw 10:44 Stephania Dinero is Primary Nurse. cp4 10:47 XRAY Wrist LEFT 3 view In Process Unspecified. EDMS 10:55 Bed in low position. Call light in reach. Side rails up X 1. cp4 10:55 No provider procedures requiring assistance completed. Patient did not have IV access cp4 during this emergency room visit. 12:46 Atul Villa MD is Referral Physician. [facility] 12:46 Surinder Morin MD is Referral Physician. [facility] 12:56 Provided Education on: de quervain's tenosynovitis.. cp4 Administered Medications: 10:50 Drug: traMADol PO 100 mg PO once Route: PO; cp4 12:59 Follow up: Response: No adverse reaction cp4 10:50 Drug: Dexamethasone IM 10 mg IM once Route: IM; Site: left deltoid; cp4 12:59 Follow up: Response: No adverse reaction cp4 Medication: 10:55 VIS not applicable for this client. cp4 Outcome: 12:46 Discharge ordered by . 7 12:56 Discharged to home ambulatory, cp4 12:56 Condition: stable 12:56 Discharge instructions given to patient, Instructed on discharge instructions, follow up and referral plans. medication usage, Demonstrated understanding of instructions, follow-up care, medications, 12:57 Patient left the ED. cp4 Signatures: Dispatcher [employer] EDJayde Evangelista, Wendy Hernandez RN RN Nicole Negrete, WOOD CASKET MAKER WOOD CASKET MAKER jh7 Stephania Dinero cp4
--- NOTE | 2023-12-01 12:47 | EDPHYS ---
Physician Documentation [facility] Name: Maribell Galindo Age: 77 yrs Sex: Female : 1945 Arrival Date: 12/01/2023 Time: 10:21 Bed 15 Private MD: Atul Villa V ED Physician Magnus Albright HPI: 11/30 10:35 This 77 yrs old Female presents to ER via Ambulatory with complaints of Wrist Pain. jh7 10:35 The patient or guardian reports decreased range of motion, pain, swelling, tenderness. jh7 Onset: The symptoms/episode began/occurred last night. 77-year-old female with past medical history of hypertension, WI, arthritis, neuropathy, CVA, and hyperlipidemia presents to the ER for left wrist pain. The patient reports that the pain is proximal to her thumb and that any range of motion of both her wrist and thumb exacerbate the pain. States that she has a history of arthritis, but that this pain is worse.. Historical: - Allergies: 10:36 Morphine (Respiratory distress); iw - PMHx: 10:36 Hyperlipidemia; CVA; Hypertension; Myocardial infarction; neuropathy pain; iw - Immunization history:: Adult Immunizations. - Infectious Disease History:: Denies. - Social history:: Smoking status: Patient denies any tobacco usage or history of. ROS: 10:35 Constitutional: Negative for fever, chills, and weight loss, Eyes: Negative for injury, jh7 pain, redness, and discharge, Neck: Negative for injury, pain, and swelling, Cardiovascular: Negative for chest pain, palpitations, and edema, Respiratory: Negative for shortness of breath, cough, wheezing, and pleuritic chest pain, Abdomen/GI: Negative for abdominal pain, nausea, vomiting, diarrhea, and constipation, Back: Negative for injury and pain, Skin: Negative for injury, rash, and discoloration, Neuro: Negative for headache, weakness, numbness, tingling, and seizure, 10:35 MS/extremity: Positive for decreased range of motion, pain, tenderness, of the left wrist, 10:35 All other systems are negative, Exam: 10:35 Constitutional: This is a well developed, well nourished patient who is awake, alert, jh7 and in no acute distress. Head/Face: Normocephalic, atraumatic. Neck: Trachea midline, no thyromegaly or masses palpated, and no cervical lymphadenopathy. Supple, full range of motion without nuchal rigidity, or vertebral point tenderness. No Meningismus. Cardiovascular: Regular rate and rhythm with a normal S1 and S2. No gallops, murmurs, or rubs. Normal PMI, no JVD. No pulse deficits. Respiratory: Lungs have equal breath sounds bilaterally, clear to auscultation and percussion. No rales, rhonchi or wheezes noted. No increased work of breathing, no retractions or nasal flaring. Abdomen/GI: Soft, non-tender, with normal bowel sounds. No distension or tympany. No guarding or rebound. No evidence of tenderness throughout. Back: No spinal tenderness. No costovertebral tenderness. Full range of motion. Skin: Warm, dry with normal turgor. Normal color with no rashes, no lesions, and no evidence of cellulitis. Neuro: Awake and alert, GCS 15, oriented to person, place, time, and situation. Sensory grossly intact. Normal gait. 10:35 Musculoskeletal/extremity: ROM: limited active range of motion due to pain, in the left wrist and thumb, Circulation is intact in all extremities. Pulses: are normal with no appreciated deficits, Perfusion: the extremity is normally perfused throughout, pink, warm, with brisk capillary refill, Sensation intact. Positive Balbina's test . Vital Signs: 10:35 BP 161 / 105; Pulse 71; Resp 16; Temp 97.3; Pulse Ox 99% on R/A; Pain 10/10; iw 12:00 BP 128 / 64; Pulse 58; Resp 18; Pulse Ox 100% ; cp4 10:35 Pain Scale: Adult iw MDM: 10:24 Patient medically screened. [facility] 12:48 Differential diagnosis: tendonitis, De Quervain's tenosynovitis, arthritis. Data [facility] reviewed: vital signs, nurses notes, radiologic studies, plain films. I considered the following discharge prescriptions or medication management in the emergency department Medications were administered in the Emergency Department. See MAR. Independent interpretation of the following test(s) in the Emergency Department X-Ray: My interpretation is No acute findings. Care significantly affected by the following chronic conditions: Hypertension. Counseling: I had a detailed discussion with the patient and/or guardian regarding the historical points, exam findings, and any diagnostic results supporting the discharge/admit diagnosis, the need for outpatient follow up, a orthopedic surgeon, to return to the emergency department if symptoms worsen or persist or if there are any questions or concerns that arise at home. Response to treatment: the patient's symptoms have mildly improved after treatment. 11/30 10:36 Order name: XRAY Wrist LEFT 3 view; Complete Time: 12:44 7 11/30 12:45 Order name: Thumb Spica Splint: velcro; Complete Time: 12:55 7 Administered Medications: 10:50 Drug: traMADol PO 100 mg PO once Route: PO; cp4 12:59 Follow up: Response: No adverse reaction cp4 10:50 Drug: Dexamethasone IM 10 mg IM once Route: IM; Site: left deltoid; cp4 12:59 Follow up: Response: No adverse reaction cp4 Disposition: 13:20 Co-signature as Attending Physician, Magnus Albright MD I reviewed the patient's care rt provided by the Advanced Practice Provider and agree with the diagnosis and treatment plan. Disposition Summary: 12/01/23 12:46 Discharge Ordered Notes: Location: Home [facility] Problem: new [facility] Symptoms: have improved [facility] Condition: Stable [facility] Diagnosis - Radial styloid tenosynovitis [de Quervain] [facility] Followup: [facility] - With: Surinder Morin MD - When: 2 - 3 days - Reason: Recheck today's complaints Discharge Instructions: - Discharge Summary Sheet [facility] - De Quervain's Tenosynovitis [facility] Forms: - Medication Reconciliation Form [facility] - Thank You Letter [facility] - Prescription Opioid Use [facility] - Patient Portal Instructions [facility] - Leadership Thank You Letter [facility] Prescriptions: - Tramadol 50 mg Oral Tablet - take 1 tablet ORAL route every 8 hours as needed; 12 tablet; Refills: 0, [facility] Product Selection Permitted - Medrol (Tevin) 4 mg Oral Tablets, Dose Pack - take 1 tablet ORAL route as directed - follow package instructions; 1 packet; [facility] Refills: 0, Product Selection Permitted Signatures: Dispatcher [employer] Wendy Stinson RN RN iw Nicole Thomas, SEPTIC TANK SERVICER SEPTIC TANK SERVICER [facility] Magnus Albright MD MD rt Stephania Dinero cp4
[2023-12-01 13:11] VITALS: BP 128/64; TEMP 97.3; O2SAT 100
== END 2023-12-01 12:57 | disposition home or self-care (01) ==
LOC: ER 10:21
DX: M65.4 Radial styloid tenosynovitis [de Quervain] (principal); Z88.5 Allergy status to narcotic agent
CPT/HCPCS: 73110; 96372; 99284; J1100

== ENCOUNTER 2024-03-16 11:00 | Emergency (ER) | payer OTHER ==
--- OUTSIDE RECORDS SUMMARY | 2024-03-16 11:03 | XMS REPORT | Clinical Summary ---
Author Name Unknown Organization [facility] Address [address] [place] [address] Care Team Providers Care Bitumen Plant Operator Name Role Phone Atul Villa MD Unavailable + [phone] Lesley Robin MD Primary Care Provider + [phone] Lesley Robin MD Unavailable [phone] Jericho Glover MD Unavailable [phone] María Dinero APRN Unavailable [phone] Yenifer Young MD Unavailable Allergies Active Allergy Reactions Criticality Noted Date Comments Morphine High 01/17/2016 Severe low blood pressure-patient passes out Medications Medication Sig Dispensed Refills Start Date End Date Status atorvastatin (LIPITOR) 40 mg tablet Take 1 tablet (40 mg) by mouth daily. Active clopidogrel (PLAVIX) 75 mg tablet Take 1 tablet (75 mg) by mouth daily. Active gabapentin (NEURONTIN) 300 mg capsuleIndications:re stless leg syndrome Take 400 mg by mouth 3 (three) times a day. Active celecoxib (CeleBREX) 50 mg capsule Take 2 capsules (100 mg) by mouth daily. Active amLODIPine (NORVASC) 5 mg tablet Take 1 tablet (5 mg) by mouth daily. 06/01/2021 Active bisoprolol (ZEBETA) 5 mg tablet Take 1 tablet (5 mg) by mouth daily. 05/25/2021 Active rosuvastatin (CRESTOR) 40 mg tablet Take 1 tablet (40 mg) by mouth daily. Active ascorbic acid (VITAMIN C) 500 mg tablet Take 1 tablet (500 mg) by mouth daily. Active cholecalciferol, vitamin D3, (VITAMIN D3) 5,000 units tab tablet Take 400 Units by mouth daily. Active zinc 50 mg tab Take by mouth daily. Active nq-wc-le7-dha-epa-fsh -flx-lact 133 mg-167 mg- 170 mg cap Take by mouth daily. Active glucosamine-chondroit in 500-400 mg tablet Take 1 tablet by mouth daily. Active coenzyme Q10 100 mg capsule Take 100 mg by mouth daily. Active vit C/E/Zn/coppr/lutein/z eaxan (PRESERVISION AREDS-2 ORAL) Take by mouth daily. Active magnesium 250 mg tab Take 525 mg by mouth daily. Active Active Problems Problem Noted Date Diagnosed [...] CDT Follow-Up MD Charli Hooks - Survivorship [address] [place] [id number] María Dinero, C[employer]P Personal history of malignant neoplasm of breast 03/30/2023 10:10 AM CDT Ancillary Procedure MD Charli Edwards [address] [address] María Dinero, [employer] Personal history of malignant neoplasm of breast 03/30/2023 9:05 AM CDT Ancillary Procedure MD Charli Edwards [address] [address] María Dinero, [employer] Personal history of malignant neoplasm of breast 03/30/2023 Travel after 03/17/2023 Surgical History Surgery Date Site/Laterality Comments BACK [...] Bladder canc er: 81 y/o Hypertension Mother aMrjan Rodriguez -Endocrine (Thyroid, Pituitary, Adrenal) Sister An [...] Outcome GA Total Labor Labor/2nd/3rd Weight Sex Type Anes PTL Kelin A1 A5 Name Clin Term Term Comments Menstrual cycle started at [...] Upcoming Encounters Date Type Department Care Team (Late st Contact Info) Description 03/31/2024 8:30 AM CDT Ancillary Procedure MD Charli Edwards [address] [address] María Dinero, [employer] [address] [place] [address] [email or web address] 03/31/2024 10:35 AM CDT Ancillary Procedure MD Charli Edwards [address] [address] María Dinero, [employer] [address] [place] [address] [email or web address] 04/04/2024 11:00 AM CDT Follow-Up MD Charli Hooks - Survivorship [address] [place] [id number] María Dinero, [employer] [address] [place] [address] [email or web address] Health Maintenance Due Date Last Done Comments COVID-19 Vaccine ( season) 2023, 09/08/2020 Influenza Vaccine 04/13/2024 Procedures Procedure Name Priority Date/Time Associated Diagnosis Comments DEXA BONE MINERAL DENSITY BOTH HIPS AND SPINE Routine 03/30/2023 10:23 AM CDT Personal history of malignant neoplasm of breast MAMMO DIGITAL SCREENING BILATERAL W DAVID Routine 03/30/2023 9:32 AM CDT Personal history of malignant neoplasm of breast after 03/17/2023 Results * NM Bone Mineral Density Both [...] Bone mineral density was obtained using Hologic [id number]-uqwvejQ-hud absorptiometry. Findings: The findings are provided in [...] with the final report. María Dinero APRN [facility] DXA ORDERABLES * Mammography Digital Screening Bilateral [...] on 09/18/2017, 03/27/2018 and 12/17/2019, and at [facility] on 12/27/2020 and 12/23/2021. FINDINGS: [...] 09/18/2017, 03/27/2018 and 12/17/2019, and at [facility] on 12/27/2020 and 12/23/2021. FINDINGS: [...] BI-RADS Category 2: Benign Finding(s) María Dinero [employer] IMG MAMMOGRAPHY ORDE ADWOA after 03/17/2023 Care Teams Bitumen Plant Operator Relationship Specialty Start Date End Date Atul Villa MD [address] [place] [address] [email or web address] PCP - External Referring Internal Medicine 01/11/16 Lesley Robin MD [address] [place] [id number] [email or web address] PCP - General Surgical Oncology 02/18/16 Lesley Robin MD [address] [place] [id number] [email or web address] Surgeon Surgical Oncology 02/18/16 Jericho Glover MD [address] [place] [id number] [email or web address] Physician Medical Oncology 02/18/16 María Dinero APRN [address] [place] [phone] [email or web address] Nurse Practitioner Breast Medical Oncology 12/23/21 Yenifer Young MD [address] [place] [id number] [email or web address] [email or web address] Physician Radiation Oncology 02/21/16
[2024-03-16] MEDS ORDERED: IBUPROFEN 400 MG TAB ONE (11:25)
[2024-03-16] MEDS ORDERED: IBUPROFEN 200 MG TAB PO ONE (11:25)
[2024-03-16 12:05] LABS: Absolute Eosinophils 0.1 K/uL (0-0.5); Absolute Lymphocytes (CBC) 0.9 K/uL (0.7-4.9); Absolute Monocytes 0.4 K/uL (0.1-1.3); Absolute Neutrophil 10.4 K/uL (1.8-8.0); Basophils % 0.3 % (0-1.3); Eosinophils % 1.1 % (0-4.4); Hematocrit 35.8 % (36.0-45.0); Hemoglobin 11.8 g/dL (12.0-15.0); Lymphocytes % 7.8 % (15.3-44.8); MCHC 32.9 g/dL (32.0-36.0); MCV 88.1 fL (80-100); MPV 8.1 fL (7.6-11.3); Monocytes % 3.2 % (3.3-12.3); Neutrophils % 87.6 % (41.7-73.7); Platelets 271 thou/uL (152-406); RBC Red Blood Cell Count 4.06 M/uL (3.86-4.86); Red Cell Distribution Width 15.5 % (12.1-15.2)
[2024-03-16 12:26] LABS: Albumin 3.4 g/dL (3.4-5.0); Bilirubin Total 0.6 mg/dL (0.2-1.0); Globulin 3.5 g/dL (2.3-3.5); Protein, Total 6.9 g/dL (6.4-8.2)
--- NOTE | 2024-03-16 12:44 | RAD REPORT ---
[facility] CLINICAL HISTORY: [facility] COMPARISON: CHEST SINGLE VIEW dated 02/12/2012; CHEST PA AND LAT 2 VIEW dated 03/31/2009; CHEST SINGLE VIEW dated 07/26/2006 TECHNIQUE: Portable AP view of the chest. FINDINGS: The lungs are clear. No pneumothorax or effusion. The cardiomediastinal contours are unre markable. IMPRESSION: No acute cardiopulmonary process.
[2024-03-16] MEDS ORDERED: NA CHLORIDE 0.9% 1,000 ML ONE (12:50)
[2024-03-16 12:52] LABS: PT Prothrombin Time 12.8 SECONDS (9.4-12.5); PTT, Activated Partial Thromb 29.5 SECONDS (24.3-36.9); Protime INR 1.15
[2024-03-16 13:55] LABS: Blood Morphology Comment NOT SEEN (NOT SEEN); Platelet Estimate ADEQ; White Blood Cell Scan OK (OK)
[2024-03-16 14:09] LABS: Specific Gravity 1.016 (1.005-1.030); Sqamous Epithelial None Seen /HPF (None Seen); Urine Bacteria <20 /HPF (<20); Urine Bilirubin NEGATIVE (Negative); Urine Blood 3+ (Negative); Urine Clarity Extremely Turbid (Clear); Urine Color Light-Yellow (Yellow); Urine Crystals Unidentified Few /HPF (None Seen); Urine Culture Reflex Order REFLEXED; Urine Glucose NEGATIVE (Negative); Urine Ketones NEGATIVE (Negative); Urine Microscopic Reflex YN ORDER UMIC; Urine Mucus Slight /HPF (None Seen); Urine Nitrite 2+ (Negative); Urine Protein TRACE (Negative); Urine Urobilinogen Normal (Normal); Urine WBC >50 /HPF (<5); Urine pH 5.5 (5.0-7.0)
--- NOTE | 2024-03-16 14:18 | EDPHYS ---
Physician Documentation [facility] Name: Maribell Galindo Age: 78 yrs Sex: Female : 1945 Arrival Date: 03/16/2024 Time: 11:00 Bed 2 Private MD: ED Physician Deny South HPI: 03/16 14:27 This 78 yrs old Female presents to ER via Ambulatory with complaints of chills. kb 14:27 Pt is a 78 year old female who presents for generalized weakness, chills and urinary kb frequency that started a few days ago. Denies cough, congestion, n/v/d, dysuria. States "I think I have a UTI.". Historical: - Allergies: 11:15 Morphine (Respiratory distress); aa5 - PMHx: 11:15 CVA; Hyperlipidemia; Hypertension; Myocardial infarction; neuropathy pain; aa5 - Immunization history:: Adult Immunizations unknown. - Infectious Disease History:: Denies. - Social history:: Smoking status: Patient denies any tobacco usage or history of. ROS: 14:27 Constitutional: As per HPI kb Exam: 12:09 Constitutional: This is a well developed, well nourished patient who is awake, alert, kb and in no acute distress. Head/Face: Normocephalic, atraumatic. ENT: Moist Mucous membranes Cardiovascular: Regular rate Respiratory: Respirations even and unlabored. No increased work of breathing. Talking in full sentences Abdomen/GI: Soft, non-tender. No distention Skin: Warm, dry with normal turgor. Normal color. MS/ Extremity: Pulses equal, no cyanosis. Neurovascular intact. Full, normal range of motion. Neuro: Awake and alert, GCS 15, oriented to person, place, time, and situation. Moves all extremities. Normal gait. 12:09 ECG was reviewed by the Attending Physician. Vital Signs: 11:15 BP 158 / 70; Pulse 103; Resp 24 S; Temp 100.7(O); Pulse Ox 93% on R/A; Weight 86.18 kg aa5 (R); Height 5 ft. 5 in. (R); 12:30 Pulse 84; Resp 18; Pulse Ox 96% ; db 13:40 Pulse 74; Resp 16; Pulse Ox 96% on R/A; db 14:00 BP 136 / 69; Pulse 66; Resp 18; Pulse Ox 97% on R/A; db 14:28 Temp 99(O); db 11:15 Body Mass Index 31.62 (86.18 kg, 165.1 cm) aa5 MDM: 11:04 Patient medically screened. kb 14:17 ED course: Pt states she is feeling better and ready to go home. COVID and flu swabs kb were not obtained, but pt prefers not to have them done because she is ready to go. . 14:28 Differential diagnosis: uti, viral syndrome, covid, flu. Data reviewed: vital signs, kb nurses notes. Counseling: I had a detailed discussion with the patient and/or guardian regarding the historical points, exam findings, and any diagnostic results supporting the discharge/admit diagnosis, lab results, the need for outpatient follow up, a family practitioner, to return to the emergency department if symptoms worsen or persist or if there are any questions or concerns that arise at home. 14:29 Test considered but Not performed: CT: ct considered but pt has no abd/flank pain, kb tenderness. 14:38 Historians other than the Patient: Spouse/Significant Other: . kb 03/16 11:54 Order name: Comprehensive Metabolic Panel; Complete Time: 12:30 EDNY 03/16 11:54 Order name: CBC with Automated Diff; Complete Time: 14:02 EDNY 03/16 12:00 Order name: Lactate w/ 2H reflex if indic.; Complete Time: 12:30 EDNY 03/16 12:00 Order name: Protime (+INR); Complete Time: 12:55 EDNY 03/16 12:00 Order name: PTT, Activated Partial Thromb; Complete Time: 12:55 EDNY 03/16 12:00 Order name: Blood Culture EDNY 03/16 12:00 Order name: Blood Culture EDNY 03/16 12:17 Order name: CBC Smear Scan; Complete Time: 14:02 EDNY 03/16 14:02 Order name: Urinalysis w/ reflexes; Complete Time: 14:10 EDNY 03/16 14:12 Order name: Urine Culture EDNY 03/16 11:39 Order name: Chest Single View; Complete Time: 12:47 EDNY 03/16 11:16 Order name: EKG; Complete Time: 15:52 kb 03/16 11:16 Order name: Accucheck; Complete Time: 11:55 kb 03/16 11:16 Order name: Cardiac monitoring; Complete Time: 11:55 kb 03/16 11:16 Order name: EKG - Nurse/Tech; Complete Time: 11:55 kb 03/16 11:16 Order name: IV Saline Lock - Large Bore; Complete Time: 11:53 kb 03/16 11:16 Order name: Labs collected and sent; Complete Time: 11:53 kb 03/16 11:16 Order name: O2 Per Protocol; Complete Time: 11:55 kb 03/16 11:16 Order name: O2 Sat Monitoring; Complete Time: 11:55 kb 03/16 11:16 Order name: Vital Signs; Complete Time: 11:46 kb 03/16 14:10 Order name: Misc. Order: recheck temp please; Complete Time: 14:28 kb EC:09 Rate is 91 beats/min. Rhythm is regular. QRS [place] is Normal. SC interval is normal at kb 140 msec. QRS interval is normal at 78 msec. QT interval is normal at 425 msec. Administered Medications: 11:29 Drug: Ibuprofen PO 600 mg PO once Route: PO; rs5 11:55 Follow up: Response: No adverse reaction db 12:52 Drug: NS 0.9% IV 1000 ml IV at 1000 ml once Route: IV; Rate: 1000 ml; Site: left rs5 antecubital; 14:38 Follow up: Response: No adverse reaction; IV Status: Completed infusion; IV Intake: db 1000ml 14:27 Drug: Rocephin IV 1 grams IV at calculated rate once; Given slow IV push per pharmacy db instructions Route: IV; Rate: calculated rate; Site: left antecubital; 14:38 Follow up: Response: No adverse reaction; IV Status: Completed infusion; IV Intake: 50mldb Disposition Summary: 03/16/24 14:18 Discharge Ordered Notes: Location: Home kb Condition: Stable kb Diagnosis - UTI/ Urinary tract infection, site not specified kb Followup: kb - With: Emergency Department - When: As needed - Reason: Worsening of condition Followup: kb - With: Private Physician - When: 2 - 3 days - Reason: Recheck today's complaints, Continuance of care, Re-evaluation by your physician Discharge Instructions: - Discharge Summary Sheet kb - Urinary Tract Infection, Adult, [id number] kb Forms: - Medication Reconciliation Form kb - Antibiotic Education kb - Prescription Opioid Use kb - Patient Portal Instructions kb - Leadership Thank You Letter kb Prescriptions: - Augmentin 875-125 mg Oral Tablet - take 1 tablet ORAL route every 12 hours for 10 days; 20 tablet; Refills: 0, kb Product Selection Permitted Addendum: 03/17/2024 17:19 I was immediately available for consultation during this patient's visit. I did not e c2 personally see the patient or discuss the patient with the ELIJAH. . Signatures: Dispatcher [employer] EDDaly Bower, MARKETING INFORMATION ANALYST-C MARKETING INFORMATION ANALYST-Liyah Ibrahim RN RN aa5 Donna Farmer RN RN db Timo Forbes RN RN rs5 Deny South MD MD ec2
--- NOTE | 2024-03-16 14:18 | ER ---
Nurse's Notes [facility] Name: Maribell Galindo Age: 78 yrs Sex: Female : 1945 Arrival Date: 03/16/2024 Time: 11:00 Bed 2 Private MD: Diagnosis: UTI/ Urinary tract infection, site not specified Presentation: 03/16 11:15 Chief complaint: Patient states: chills, generalized weakness, and urinary frequency. aa5 11:15 Coronavirus screen: chills. Ebola Screen: Patient denies travel to an Ebola-affected [facility] area in the 21 days before illness onset. Initial Sepsis Screen: Does the patient meet any 2 criteria? RR > 20 per min. HR > 90 bpm. Does the patient have a suspected source of infection? No. Patient's initial sepsis screen is negative. Risk Assessment: Do you want to hurt yourself or someone else? Patient reports no desire to harm self or others. Onset of symptoms was March 2024. 11:15 Method Of Arrival: Ambulatory aa5 11:15 Acuity: BINTA 3 aa5 Historical: - Allergies: 11:15 Morphine (Respiratory distress); aa5 - PMHx: 11:15 CVA; Hyperlipidemia; Hypertension; Myocardial infarction; neuropathy pain; aa5 - Immunization history:: Adult Immunizations unknown. - Infectious Disease History:: Denies. - Social history:: Smoking status: Patient denies any tobacco usage or history of. Screenin:[address] [facility] ED Fall Risk Assessment (Adult) History of falling in the last 3 months, db including since admission No falls in past 3 months (0 pts) Confusion or Disorientation No (0 pts). [facility] ED Fall Risk Assessment (Adult) Intoxicated or Sedated No (0 pts) Impaired Gait No (0 pts) Mobility Assist Device Used No (0 pt) Altered Elimination No (0 pt) Score/Fall Risk Level 0 - 2 = Low Risk Oriented to surroundings, Maintained a safe environment. Abuse screen: Denies threats or abuse. Denies injuries from another. Nutritional screening: No deficits noted. Tuberculosis screening: No symptoms or risk factors identified. Assessment: 11:46 Reassessment: Patient appears in no apparent distress at this time. Patient and/or db family updated on plan of care and expected duration. Pain level reassessed. Patient is alert, oriented x 3, equal unlabored respirations, skin warm/dry/pink. General: Appears in no apparent distress. comfortable, Behavior is calm, cooperative. Pain: Complains of pain in BODY ACHES. Neuro: Level of Consciousness is awake, alert, obeys commands, Oriented to person, place, time, situation. Respiratory: Airway is patent Respiratory effort is even, unlabored, Respiratory pattern is regular, symmetrical. 12:30 Reassessment: Patient appears in no apparent distress at this time. Patient and/or db family updated on plan of care and expected duration. Pain level reassessed. Patient is alert, oriented x 3, equal unlabored respirations, skin warm/dry/pink. 13:48 Reassessment: PT AMBULATORY TO RESTROOM. db 14:28 Reassessment: Patient appears in no apparent distress at this time. Patient and/or db family updated on plan of care and expected duration. Pain level reassessed. Patient is alert, oriented x 3, equal unlabored respirations, skin warm/dry/pink. Patient states feeling better. Patient states symptoms have improved. Vital Signs: 11:15 BP 158 / 70; Pulse 103; Resp 24 S; Temp 100.7(O); Pulse Ox 93% on R/A; Weight 86.18 kg aa5 (R); Height 5 ft. 5 in. (R); 12:30 Pulse 84; Resp 18; Pulse Ox 96% ; db 13:40 Pulse 74; Resp 16; Pulse Ox 96% on R/A; db 14:00 BP 136 / 69; Pulse 66; Resp 18; Pulse Ox 97% on R/A; db 14:28 Temp 99(O); db 11:15 Body Mass Index 31.62 (86.18 kg, 165.1 cm) aa5 ED Course: 11:02 Patient arrived in ED. im 11:03 Deny South MD is Attending Physician. ec2 11:03 Daly Raymond F[facility]-C is [facility]. kb 11:15 Arm band placed on. aa5 11:18 Triage completed. aa5 11:21 Donna Farmer, FRANCIA is Primary Nurse. db 11:42 First set of blood cultures drawn by me. em1 11:53 Chest Single View In Process Unspecified. EDMS 11:53 Initial lab(s) drawn, by me, sent to lab. Inserted saline lock: 20 gauge in left em1 antecubital area, using aseptic technique. Blood collected. Flushed with 10 mL NS. 11:54 EKG done, by carpet cleaning technician. reviewed by Deny South MD. oh1 14:03 Patient has correct armband on for positive identification. Side rails up X 1. Client db placed on continuous cardiac and pulse oximetry monitoring. NIBP monitoring applied. hospital monitor on. Pulse ox on. 14:37 Provided Education on: DISCHARGE. Warm blanket given. db 14:37 No provider procedures requiring assistance completed. IV discontinued, intact, db bleeding controlled, No redness/swelling at site. 08 04:32 reported positive aerobic and anaerobic blood cultures to next shift. growing gram vc1 negative rods. Administered Medications: 03/16 11:29 Drug: Ibuprofen PO 600 mg PO once Route: PO; rs5 11:55 Follow up: Response: No adverse reaction db 12:52 Drug: NS 0.9% IV 1000 ml IV at 1000 ml once Route: IV; Rate: 1000 ml; Site: left rs5 antecubital; 14:38 Follow up: Response: No adverse reaction; IV Status: Completed infusion; IV Intake: db 1000ml 14:27 Drug: Rocephin IV 1 grams IV at calculated rate once; Given slow IV push per pharmacy db instructions Route: IV; Rate: calculated rate; Site: left antecubital; 14:38 Follow up: Response: No adverse reaction; IV Status: Completed infusion; IV Intake: 50mldb Medication: 14:37 VIS not applicable for this client. db Intake: 14:38 IV: 50ml; Total: 50ml. db 14:38 IV: 1000ml; Total: 1050ml. db Outcome: 14:18 Discharge ordered by MD. edmondson 14:37 Discharged to home ambulatory, with family, db 14:37 Condition: stable 14:37 Discharge instructions given to patient, family, Instructed on discharge instructions, follow up and referral plans. Prescriptions given X 1, 14:39 Patient left the ED. db Signatures: Dispatcher [employer] EDIL Daly Raymond, Leodan Faustin em1 Liyah Kang, RN RN aa5 Angie Freire RN RN vc1 Donna Farmer RN RN db Timo Forbes RN RN rs5 Mechelle Rider Edwin, MD MD ec2 Sophia Desai oh1
[2024-03-16] MEDS ORDERED: CEFTRIAXONE 1000 MG/VIAL ONE (14:22)
[2024-03-16] MEDS ORDERED: NA CHLORIDE 0.9% 50 ML ONE (14:22)
[2024-03-16 16:42] VITALS: BP 136/69; O2SAT 97
[2024-03-16 16:43] VITALS: TEMP 99
--- NOTE | 2024-03-17 17:00 | EKG ---
Test Date: 2024-03-16 Test Time: 11:46:30 Continuity Writer: HELEN MEASUREMENT RESULTS: Intervals: Rate: 91 ID: [id number] QRSD: 78 QT: 346 QTc: 425 [place]: P: 36 ID: [id number] QRS: -30 T: 32 INTERPRETIVE STATEMENTS: Normal sinus rhythm Left axis deviation Abnormal ECG Compared to ECG 01/10/2016 04:05:03 Left-axis deviation now present Electronically Signed On 03-17-24 16:57:13 CDT by Dandy Solis
== END 2024-03-16 14:39 | disposition home or self-care (01) ==
LOC: ER 11:00
DX: N39.0 Urinary tract infection, site not specified (principal)
CPT/HCPCS: 93005; 87040 ×2; 87088; 85025; 81001; 87086; 36415; 87205 ×3; 85610; 83605; 85730; 80053; 71045; J7030; J0696; 87077; 87186; 96361; 96374; 99285

== ENCOUNTER 2024-05-21 06:18 | Emergency (ER) | payer OTHER ==
--- OUTSIDE RECORDS SUMMARY | 2024-05-21 06:21 | XMS REPORT | Clinical Summary ---
Author Name Unknown Organization [facility] [place] Address [address] [place] [address] Care Team Providers Care Collections Attorney Name Role Phone Atul Villa MD Unavailable + [phone] Lesley Robin MD Primary Care Provider + [phone] Lesley Robin MD Unavailable [phone] Jericho Glover MD Unavailable [phone] María Dinero APRN Unavailable [phone] Yenifer Young MD Unavailable [phone] Allergies Active Allergy Reactions Criticality Noted [...] mg tab Take by mouth daily. Active eh-lp-um8-dha-epa-fsh -flx-lact 133 mg-167 mg- 170 mg cap [...] IA(T1c, N0(i-), cM0) - Signed by Lesley Roibn MD on 04/14/2016 Clinical stage from 03/14/2016:Stage IA(T1c, N0, M0) - Signed by Lesley Robin MD on 03/14/2016 Estrogen receptor positive status (ER+) 01/31/20 16 Encounters Date Type Department Care Team Description 03/31/2024 10:35 AM CDT Ancillary Procedure MD Charli Edwards [address] [address] María Dinero, PARLIAMENTARY COUNSEL Personal history of malignant neoplasm of breast 03/31/2024 8:30 AM CDT Ancillary Procedure MD Augustin [address] [address] María Dinero, PARLIAMENTARY COUNSEL Personal history of malignant neoplasm of breast 03/31/2024 Travel after 05/22/2023 Surgical History Surgery Date Site/Laterality Comments BACK SURGERY 08/13/2002 - 08/12/2003 COLONOSCOPY 08/13/2013 - 08/12/2014 CARPAL TUNNEL RELEASE Right about 10 years ago OOPHORECTOMY age 34 HYSTERECTOMY ? 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, WITH DCIS, RIGHT BREAST Family History Medical History Relation Name Comments [...] Sign Reading Time Taken Comments Blood Pressure - - Pulse - - Temperature - - Respiratory Rate - - Oxygen Saturation - - Inhaled Oxygen Concentration - - Weight 87.3 kg (192 lb 7.4 oz) 03/31/2024 8:53 A M CDT Height - - Body Mass Index 36.6 10/28/2020 9:06 AM CDT Plan of Treatment Health Maintenance Due Date Last Done Comments Pneumococcal Vaccine: 65+ Ye ars (1 of 1 - PCV) 12/30/2011 COVID-19 Vaccine (3 - season) 2024, 09/08/2020 Influenza Vaccine (#1) 2024 Procedures Procedure Name Priority Date/Time Associated Diagnosis Comments MAMMO DIGITAL SCREENING BILATERAL W DAVID Routine 03/31/2024 9:56 AM CDT Personal history of malignant neoplasm of breast DEXA BONE MINERAL DENSITY BOTH HIPS AND SPINE Routine 03/31/2024 9:14 AM CDT Personal history of malignant neoplasm of breast after 05/22/2023 Results * Mammography Digital Screening Bilateral with David (03/31/2024 9:56 AM CDT) Anatomical Region Laterality Modality Breast Bilateral Mammography Impressions 03/31/2024 10:01 AM CDT Bilateral There is no mammographic evidence of malignancy. Overall BI-RAD Category: 2 - Benign Mammogram in 1 Year is recommended. Narrative 03/31/2024 10:01 AM CDT CLINICAL INDICATION: Patient is a 78 y.o. female and is seen for screening. Mammography Digital Screening Bilateral with David Computer-aided detection was utilized by the radiologist in the interpretation of this examination. Tomosynthesis was performed in CC and MLO projections. COMPARISON: The present examination has been compared to prior imaging studies performed : 03/27/2018 OSI Mammo at [facility] , 12/17/2019 OSI Mammo at [facility] [place] , 12/27/2020 Mammography Digital Diagnostic Bilateral with David at [facility] , 12/23/2021 Mammography Digital Screening Bilateral with David at [facility] , 03/30/2023 Mammography Digital Screening Bilateral with David at [facility] FINDINGS: The breasts are heterogeneously dense, which may obscure small masses. Bilateral No dominant mass, architectural distortion, or suspicious calcifications are identified. There are benign postsurgical changes in the right breast. María Dinero PARLIAMENTARY COUNSEL IMG MAMMOGRAPHY ORDE ADWOA * NM Bone Mineral Density Both Hips and Spine (03/31/2024 9:14 AM CDT) Anatomical Region Laterality Modality Spine Nuclear Medicine 03/31/2024 9:15 AM CDT Impressions 03/31/2024 9:18 AM CDT 1. Osteopenia, based on the bone mineral density measurements of the femoral necks bilaterally. 2. Interval decrease in the bone mineral density measurement of the left femoral neck. I personally reviewed these image(s) along with the resident's/fellow's interpretations, certify that if a procedure was performed I was physically present, and agree with the final report. Narrative 03/31/2024 9:18 AM CDT FULL RESULT: Examination: Bone Mineral Density (DXA), 03/31/2024 Clinical History: A 78-year-old postmenopausal female treated for breast cancer. Indication: Assessment of bone mineral density. Comparison: 03/30/2023. Technique: Bone mineral density was obtained using Hologic dual-energy X-ray absorptiometry. Findings: The findings are provided in the below table(s). Bone Density: Region Exam Date BMD T- Z- g/cm2 Score Score AP Spine (L1-L4) 03/31/2024 1.056 0.1 2.6 Femoral Neck (Left) 03/31/2024 0.698 -1.4 0.8 Total Hip (Left) 03/31/2024 0.972 0.2 2.1 Femoral Neck (Right) 03/31/2024 0.727 -1.1 1.1 Total Hip (Right) 03/31/2024 0.957 0.1 2.0 For postmenopausal women and men age 50 and over, the World Health Organization criteria for BMD interpretation classify patients as: Normal (T-score at or above -1.0), Osteopenia (T-score between -1.0 and -2.5), or Osteoporosis (T-score at or below -2.5). Previous Exams: Region Exam Age BMD T-score BMD Change vs Date g/cm2 Baseline Previous AP Spine (L1-L4) 03/31/2024 78 1.056 0.1 7.5%* -0.7% 03/30/2023 77 1.064 0.2 8.3%* 8.3%* 10/28/2020 74 0.983 -0.6 Total Hip(Left) 03/31/2024 78 0.972 0.2 3.7%* -0.2% 03/30/2023 77 0.974 0.3 3.9%* 3.9%* 10/28/2020 74 0.937 0.0 Femoral Neck(Left) 03/31/2024 78 0.698 -1.4 -1.3% -6.8%* 03/30/2023 77 0.749 -0.9 5.9% 5.9% 10/28/2020 74 0.708 -1.3 Total Hip(Right) 03/31/2024 78 0.957 0.1 2.7% 2.3% 03/30/2023 77 0.935 -0.1 0.5% 0.5% 10/28/2020 74 0.931 -0.1 Femoral Neck(Right) 03/31/2024 78 0.727 -1.1 -0.8% 3.7% 03/30/2023 77 0.701 -1.3 -4.3% -4.3% 10/28/2020 74 0.733 -1.0 *Denotes significance at 95% confidence level, site specific LSC for AP Spine = 0.029 g/cm2, site specific LSC for Total Hip = 0.033 g/cm2, site specific LSC for Femoral Neck = 0.045 g/cm2, LSC for 1/3 Forearm = 0.023 g/cm2 Procedure Note Baltazar Allison MD - 03/31/2024 FULL RESULT: Examination: Bone Mineral Density (DXA), 03/31/2024 Clinical History: A 78-year-old postmenopausal female treated for breastcancer. Indication: Assessment of bone mineral density. Comparison: 03/30/2023. Technique: Bone mineral density was obtained using Hologic iubr-tkyqvtH-ihh absorptiometry. Findings: The findings are provided in the below table(s). Bone Density: Region Exam Date BMD T- Z- g/cm2 Score Score AP Spine (L1-L4) 03/31/2024 1.056 0.1 2.6 Femoral Neck (Left) 03/31/2024 0.698 -1.4 0.8 Total Hip (Left) 03/31/2024 0.972 0.2 2.1 Femoral Neck (Right) 03/31/2024 0.727 -1.1 1.1 Total Hip (Right) 03/31/2024 0.957 0.1 2.0 For postmenopausal women and men age 50 and over, the World Health Organization criteria for BMD interpretation classify patients as: Normal (T-score at or above -1.0), Osteopenia (T-score between -1.0 and -2.5), or Osteoporosis (T-score at or below -2.5). Previous Exams: Region Exam Age BMD T-score BMD Change vs Date g/cm2 Baseline Previous AP Spine (L1-L4) 03/31/2024 78 1.056 0.1 7.5%* -0.7% 03/30/2023 77 1.064 0.2 8.3%* 8.3%* 10/28/2020 74 0.983 -0.6 Total Hip(Left) 03/31/2024 78 0.972 0.2 3.7%* -0.2% 03/30/2023 77 0.974 0.3 3.9%* 3.9%* 10/28/2020 74 0.937 0.0 Femoral Neck(Left) 03/31/2024 78 0.698 -1.4 -1.3% -6.8%* 03/30/2023 77 0.749 -0.9 5.9% 5.9% 10/28/2020 74 0.708 -1.3 Total Hip(Right) 03/31/2024 78 0.957 0.1 2.7% 2.3% 03/30/2023 77 0.935 -0.1 0.5% 0.5% 10/28/2020 74 0.931 -0.1 Femoral Neck(Right) 03/31/2024 78 0.727 -1.1 -0.8% 3.7% 03/30/2023 77 0.701 -1.3 -4.3% -4.3% 10/28/2020 74 0.733 -1.0 *Denotes significance at 95% confidence level, site specific LSC for APSpine = 0.029 g/cm2, site specific LSC for Total Hip = 0.033 g/cm2, sitespecific LSC for Femoral Neck = 0.045 g/cm2, LSC for 1/3 Forearm = 0.023 g/cm2 IMPRESSION: 1. Osteopenia, based on the bone mineral density measurements of thefemoral necks bilaterally. 2. Interval decrease in the bone mineral density measurement of the leftfemoral neck. I personally reviewed these image(s) along with the resident's/fellow'sinterpretations, certify that if a procedure was performed I wasphysically present, and agree with the final report. María Dinero PARLIAMENTARY COUNSEL IMG DXA ORDERABLES after 05/22/2023 Care Teams Collections Attorney Relationship Specialty Start Date End Date Atul Villa MD [address] [place] [id number] [email or web address] PCP - External Referring Internal Medicine 01/11/16 Lesley Robin MD [address] [place] [id number] [email or web address] PCP - General Surgical Oncology 02/18/16 Lesley Robin MD [address] [place] [id number] [email or web address] Surgeon Surgical Oncology 02/18/16 Jericho Glover MD [address] [place] [id number] [email or web address] Physician Medical Oncology 02/18/16 María Dinero APRN [address] [place] [phone] [email or web address] Nurse Practitioner Breast Medical Oncology 12/23/21 Yenifer Young MD [address] [place] [id number] [email or web address] Consulting Physician Radiation Oncology 02/21/16
[2024-05-21] MEDS ORDERED: TRAMADOL HCL 50 MG TAB ONE (07:04)
[2024-05-21] MEDS ORDERED: dexAMETHasone 10 MG/ML VIAL ONE (07:41)
[2024-05-21] MEDS ORDERED: IBUPROFEN 400 MG TAB ONE (07:41)
[2024-05-21] MEDS ORDERED: IBUPROFEN 200 MG TAB PO ONE (07:41)
--- NOTE | 2024-05-21 07:49 | RAD REPORT ---
EXAM:Wrist Left 3 View HISTORY: PAIN COMPARISON: None IMPRESSION: Moderate radiocarpal degenerative changes are present. Subtle calcification of the TFCC i s seen, chronic. Mild soft tissue swelling is seen adjacent to the ulnar aspect of the wrist. No acute fracture or dislocation evident. Moderate degenerative change with degenerative cysts present f irst carpometacarpal joint.
--- NOTE | 2024-05-21 08:18 | EDPHYS ---
Physician Documentation [facility] Name: Maribell Galindo Age: 78 yrs Sex: Female : 1945 Arrival Date: 05/21/2024 Time: 06:18 Bed 5 Private MD: ED Physician Negro Foy HPI: 05/21 06:56 This 78 yrs old Female presents to ER via Ambulatory with complaints of Wrist Pain - rt left. 06:56 Patient presents to the ED with left wrist pain starting since last night. Patient has rt had issues with the wrist before requiring injections. The patient reports that she was sewing all day yesterday. Denies other discrete injury. Denies other acute complaints at this time, symptoms are moderate in severity, aching nature, nonradiating, no other aggravating or alleviating factors.. Historical: - Allergies: 06:44 Morphine (Respiratory distress); br2 07:48 Amoxicillin ("terrible diarrhea"); ll1 - PMHx: 06:44 CVA; Hyperlipidemia; Hypertension; Myocardial infarction; neuropathy pain; br2 - Immunization history:: Adult Immunizations not up to date. - Infectious Disease History:: Denies. - Social history:: Smoking status: Patient denies any tobacco usage or history of. Patient uses alcohol, occasionally. - Family history:: not pertinent. ROS: 06:56 Constitutional: Negative for fever, chills, and weight loss, Cardiovascular: Negative rt for chest pain, palpitations, and edema, Respiratory: Negative for shortness of breath, cough, wheezing, and pleuritic chest pain, Abdomen/GI: Negative for abdominal pain, nausea, vomiting, diarrhea, and constipation, Skin: Negative for injury, rash, and discoloration, Neuro: Negative for headache, weakness, numbness, tingling, and seizure, 06:56 MS/extremity: Positive for pain, swelling, Exam: 06:56 Constitutional: This is a well developed, well nourished patient who is awake, alert, rt and in no acute distress. Head/Face: Normocephalic, atraumatic. Chest/axilla: Normal chest wall appearance and motion. Nontender with no deformity. No lesions are appreciated. Cardiovascular: Regular rate and rhythm with a normal S1 and S2. No gallops, murmurs, or rubs. Normal PMI, no JVD. No pulse deficits. Respiratory: Lungs have equal breath sounds bilaterally, clear to auscultation and percussion. No rales, rhonchi or wheezes noted. No increased work of breathing, no retractions or nasal flaring. Neuro: Awake and alert, GCS 15, oriented to person, place, time, and situation. Cranial nerves II-XII grossly intact. Motor strength 5/5 in all extremities. Sensory grossly intact. Cerebellar exam normal. Normal gait. 06:56 Musculoskeletal/extremity: Mild swelling, tenderness over left wrist, no deformities noted, no overlying skin changes, pulses, motor, sensation intact. Vital Signs: 06:41 BP 148 / 77; Pulse 66; Resp 18 S; Temp 97.6; Pulse Ox 99% on R/A; Weight 86.18 kg; br2 Height 5 ft. 2 in. ; Pain 10/10; 07:06 BP 132 / 78; Pulse 65; Resp 16; Pulse Ox 100% on R/A; ko1 08:31 BP 122 / 58; Pulse 65; Resp 16; Pulse Ox 97% ; Pain 6/10; ll1 06:41 Body Mass Index 34.75 (86.18 kg, 157.48 cm) br2 06:41 Pain Scale: Adult br2 08:31 Pain Scale: Adult ll1 MDM: 06:44 Patient medically screened. rt 08:14 Differential diagnosis: contusion, tendonitis, Tenosynovitis. Data reviewed: vital rn signs, nurses notes, radiologic studies, plain films, and as a result, I will discharge patient. Independent interpretation of the following test(s) in the Emergency Department X-Ray: My interpretation is X-ray left wrist negative for acute fracture dislocation per my interpretation. Counseling: I had a detailed discussion with the patient and/or guardian regarding the historical points, exam findings, and any diagnostic results supporting the discharge/admit diagnosis, radiology results, the need for outpatient follow up, to return to the emergency department if symptoms worsen or persist or if there are any questions or concerns that arise at home. Special discussion: I discussed with the patient/guardian in detail that at this point there is no indication for admission to the hospital. It is understood, however, that if the symptoms persist or worsen the patient needs to return immediately for re-evaluation. Based on the history and exam findings, there is no indication for further emergent testing or inpatient evaluation. I discussed with the patient/guardian the need to see the hand specialist for further evaluation of the symptoms. ED course: X-ray negative for fracture or dislocation. Most likely overuse such as tenosynovitis/arthritis/tendinitis. Patient states has had this identical pain in the past and required steroid injections by hand specialist. They recommended at that time to have surgery but patient declined. Patient spent the entire day yesterday sewing and there was no obvious injury or fall preceding onset of pain. Patient will follow-up with her hand specialist and given return precautions. Patient without history of gout or fever/chills/systemic symptoms.. 05/21 06:48 Order name: Wrist Left (3 View) XRAY; Complete Time: 07:50 rt Administered Medications: 07:05 Drug: traMADol PO 50 mg PO once Route: PO; ll1 07:48 Follow up: Response: No adverse reaction; Pain is unchanged, physician notified; RASS: ll1 Alert and Calm (0) 07:48 Drug: Dexamethasone IM 10 mg IM once Route: IM; Site: right gluteus; ll1 08:31 Follow up: Response: No adverse reaction; Pain is decreased; RASS: Alert and Calm (0) ll1 07:48 Drug: Ibuprofen PO 600 mg PO once Route: PO; ll1 08:31 Follow up: Response: No adverse reaction; Pain is decreased ll1 Disposition Summary: 05/21/24 08:18 Discharge Ordered Notes: Location: Home rn Problem: an ongoing problem rn Symptoms: have improved rn Condition: Stable rn Diagnosis - Pain in left wrist rn - Other synovitis and tenosynovitis, left hand rn Followup: rn - With: Private Physician - When: As needed - Reason: Recheck today's complaints, Re-evaluation by your physician Discharge Instructions: - Discharge Summary Sheet rn - Arthritis rn - Wrist Pain, Adult rn Forms: - Medication Reconciliation Form rn - Antibiotic merchandising intern - Prescription Opioid Use rn - Patient Portal Instructions rn - Leadership Thank You Letter rn Prescriptions: - Tramadol 50 mg Oral tablet - take 1 tablet ORAL route every 8 hours As needed as needed; 12 tablet; Refills: rn 0, Product Selection Permitted Signatures: Dispatcher [employer] Negro Hardy MD MD rn Lewis, Lynsay, RN RN ll1 Magnus Albright MD MD rt Mary Duran, RN RN br2
--- NOTE | 2024-05-21 08:18 | ER ---
Nurse's Notes [facility] Name: Maribell Galindo Age: 78 yrs Sex: Female : 1945 Arrival Date: 05/21/2024 Time: 06:18 Bed 5 Private MD: Diagnosis: Pain in left wrist;Other synovitis and tenosynovitis, left hand Presentation: 05/21 06:41 Chief complaint: Patient states: PT STATES SHE WAS SEWING YESTERDAY AND BEGAN HAVING br2 PAIN TO LEFT WRIST. DENIES INJURY. HX OF PAIN TO WRIST IN THE PAST, AND HAS RECEIVED INJECTIONS DUE TO THE PAIN. Coronavirus screen: Client denies travel out of the [place] in the last 14 days. Ebola Screen: Patient negative for fever greater than or equal to 101.5 degrees Fahrenheit, and additional compatible Ebola Virus Disease symptoms Patient denies exposure to infectious person. Patient denies travel to an Ebola-affected area in the 21 days before illness onset. Initial Sepsis Screen: Does the patient meet any 2 criteria? No. Patient's initial sepsis screen is negative. Does the patient have a suspected source of infection? No. Patient's initial sepsis screen is negative. Risk Assessment: Do you want to hurt yourself or someone else? Patient reports no desire to harm self or others. Onset of symptoms was May 20, 2024 at 22:30. 06:41 Method Of Arrival: Ambulatory br2 06:41 Acuity: BINTA 4 br2 Triage Assessment: 06:44 General: Appears uncomfortable. General: Behavior is calm, cooperative. Pain: Complains br2 of pain in palmar aspect of left wrist Pain does not radiate. Pain currently is 10 out of 10 on a pain scale. Historical: - Allergies: 06:44 Morphine (Respiratory distress); br2 07:48 Amoxicillin ("terrible diarrhea"); ll1 - PMHx: 06:44 CVA; Hyperlipidemia; Hypertension; Myocardial infarction; neuropathy pain; br2 - Immunization history:: Adult Immunizations not up to date. - Infectious Disease History:: Denies. - Social history:: Smoking status: Patient denies any tobacco usage or history of. Patient uses alcohol, occasionally. - Family history:: not pertinent. Screenin:46 [facility] ED Fall Risk Assessment (Adult) History of falling in the last 3 months, br2 including since admission No falls in past 3 months (0 pts) Confusion or Disorientation No (0 pts) Intoxicated or Sedated No (0 pts) Impaired Gait No (0 pts) Mobility Assist Device Used No (0 pt) Altered Elimination No (0 pt) Score/Fall Risk Level 0 - 2 = Low Risk Oriented to surroundings. Abuse screen: Denies threats or abuse. Denies injuries from another. Nutritional screening: No deficits noted. Tuberculosis screening: No symptoms or risk factors identified. Assessment: 06:46 Reassessment: SEE TRIAGE ASSESSMENT. br2 07:09 Reassessment: No changes from previously documented assessment. Patient and/or family ll1 updated on plan of care and expected duration. Pain level reassessed. Patient is alert, oriented x 3, equal unlabored respirations, skin warm/dry/pink. Pain: Complains of pain in palmar aspect of left wrist Quality of pain is described as aching, throbbing. Neuro: No deficits noted. Cardiovascular: No deficits noted. Musculoskeletal: Circulation, motion, and sensation intact. Capillary refill < 3 seconds, in left fingers. Swelling present in palmar aspect of left wrist Tenderness present in palmar aspect of left wrist Reports pain in palmar aspect of left wrist. 07:37 Reassessment: Dr. Foy at . ll1 07:49 Reassessment: No changes from previously documented assessment. Patient and/or family ll1 updated on plan of care and expected duration. Pain level reassessed. Patient is alert, oriented x 3, equal unlabored respirations, skin warm/dry/pink. Vital Signs: 06:41 BP 148 / 77; Pulse 66; Resp 18 S; Temp 97.6; Pulse Ox 99% on R/A; Weight 86.18 kg; br2 Height 5 ft. 2 in. ; Pain 10/10; 07:06 BP 132 / 78; Pulse 65; Resp 16; Pulse Ox 100% on R/A; ko1 08:31 BP 122 / 58; Pulse 65; Resp 16; Pulse Ox 97% ; Pain 6/10; ll1 06:41 Body Mass Index 34.75 (86.18 kg, 157.48 cm) br2 06:41 Pain Scale: Adult br2 08:31 Pain Scale: Adult ll1 ED Course: 06:21 Patient arrived in ED. im 06:37 Mary Duran RN is Primary Nurse. br2 06:44 Triage completed. br2 06:44 Magnus Albright MD is Attending Physician. rt 06:44 Arm band placed on right wrist. br2 06:46 Patient has correct armband on for positive identification. Bed in low position. Call br2 light in reach. Side rails up X 1. Provided Education on: PLAN OF CARE. 07:04 Attending Physician role handed off by Magnus Albright MD rn 07:04 Negro Foy MD is Attending Physician. rn 07:06 Pulse ox on. NIBP on. Door closed. Noise minimized. Lights dimmed. Warm blanket given. ko1 Pillow given. 07:06 No provider procedures requiring assistance completed. ko1 07:34 Wrist Left (3 View) XRAY In Process Unspecified. EDMS 07:49 Primary Nurse role handed off by Mary Duran RN ll1 07:49 Alecia Sinclair RN is Primary Nurse. ll1 08:26 Patient did not have IV access during this emergency room visit. ko1 Administered Medications: 07:05 Drug: traMADol PO 50 mg PO once Route: PO; ll1 07:48 Follow up: Response: No adverse reaction; Pain is unchanged, physician notified; RASS: ll1 Alert and Calm (0) 07:48 Drug: Dexamethasone IM 10 mg IM once Route: IM; Site: right gluteus; ll1 08:31 Follow up: Response: No adverse reaction; Pain is decreased; RASS: Alert and Calm (0) ll1 07:48 Drug: Ibuprofen PO 600 mg PO once Route: PO; ll1 08:31 Follow up: Response: No adverse reaction; Pain is decreased ll1 Medication: 06:46 VIS not applicable for this client. br2 Outcome: 08:18 Discharge ordered by . rn 08:31 Discharged to home ambulatory, ll1 08:31 Condition: stable 08:31 Discharge instructions given to patient, family, Instructed on discharge instructions, follow up and referral plans. no drinking with medication, no driving heavy equipment, medication usage, Demonstrated understanding of instructions, follow-up care, medications, Prescriptions given X 1, 08:32 Patient left the ED. ll1 Signatures: Dispatcher [employer] EDMS Negro Foy MD MD rn Lewis, Lynsay, RN RN ll1 Lillian Redd RN RN ko1 Magnus Albright MD MD rt Mechelle Rider Belinda, RN RN br2
[2024-05-21 08:55] VITALS: TEMP 97.6
[2024-05-21 09:00] VITALS: BP 122/58; O2SAT 97
== END 2024-05-21 08:32 | disposition home or self-care (01) ==
LOC: ER 06:18
DX: M65.842 Other synovitis and tenosynovitis, left hand (principal)
CPT/HCPCS: 73110; J1100

== ENCOUNTER 2024-11-13 17:50 | Observation (INO) | payer OTHER ==
--- OUTSIDE RECORDS SUMMARY | 2024-11-13 17:53 | XMS REPORT | Clinical Summary ---
Author Name Unknown Organization [facility] Address [address] [place] [address] Care Team Providers Care Silo Tender Name Role Phone Atul Villa MD Unavailable + [phone] Lesley Robin MD Primary Care Provider + [phone] Lesley Robin MD Unavailable [phone] Jericho Glover MD Unavailable [phone] María Dinero APRN Unavailable [phone] Yenifer Young MD Unavailable [phone] Allergies Active Allergy Reactions Criticality Noted Date Comments Morphine High 01/17/2016 Severe low blood pressure-patient passes out Medications * This document contains information received from the source organization and may not represent a complete record from that organization. atorvastatin (LIPITOR) 40 mg tablet Take 1 tablet (40 mg) by mouth daily. Active clopidogrel (PLAVIX) 75 mg tablet Take 1 tablet (75 mg) by mouth daily. Active gabapentin (NEURONTIN) 300 mg capsuleIndicati ons:restless leg syndrome Take 400 mg by mouth [...] tablet (500 mg) by mouth daily. Active cholecalciferol , vitamin D3, (VITAMIN D3) 5,000 units tab tablet Take 400 Units by mouth daily. Active zinc 50 mg tab Take by mouth daily. Active fh-nw-za7-dha-e te-pyt-qjt-lact 133 mg-167 mg- 170 mg cap Take by mouth daily. Active glucosamine-cho ndroitin 500-400 mg tablet Take 1 tablet by mouth daily. Active coenzyme Q10 100 mg capsule Take 100 mg by mouth daily. Active vit C/E/Zn/coppr/theresa tein/zeaxan (PRESERVISION AREDS-2 ORAL) Take by mouth daily. [...] 03/31/2024 10:35 AM CDT Ancillary Procedure MD Augustin [address] [address] María Dinero, HR ANALYST Personal history of malignant neoplasm of breast 03/31/2024 8:30 AM CDT Ancillary Procedure MD Augustin [address] [address] María Dinero, HR ANALYST Personal history of malignant neoplasm of breast 03/31/2024 Travel after 11/14/2023 Surgical History Surgery Date Site/Laterality Comments BACK [...] drink = 0.6 oz pur e alcohol) Comments No Sex and Gender Information Value Date Recorded Sex Assigned at Not on file Legal Sex Female 10:08 AM CDT Gender Identity Not on file Sexual Orientation Not on file Occupation Industry Job Start Date Job End Date Not on file Not on file Not on file Not [...] Due Date Last Done Comments Pneumococcal Vaccine: 50+ Ye ars (1 of 1 - PCV) 1996 COVID-19 Vaccine (3 - 2023- season) 2024, 09/08/2020 Influenza Vaccine (#1) 2024 Procedures Procedure Name Priority Date/Time Associated Diagnosis Comments MAMMO DIGITAL SCREENING BILATERAL W DAVID Routine 03/31/2024 9:56 AM CDT Personal history of malignant neoplasm of breast DEXA BONE MINERAL DENSITY BOTH HIPS AND SPINE Routine 03/31/2024 9:14 AM CDT Personal history of malignant neoplasm of breast after 11/14/2023 Results * Mammography Digital Screening Bilateral with [...] studies performed : 03/27/2018 [facility] at [facility] , 12/17/2019 [facility] at [facility] , 12/27/2020 Mammography Digital Diagnostic Bilateral with David at [facility] , 12/23/2021 Mammography Digital Screening Bilateral with David at [facility] , 03/30/2023 Mammography Digital Screening Bilateral with David at [facility] FINDINGS: The breasts are heterogeneously dense, which may obscure small masses. Bilateral No dominant mass, architectural distortion, or suspicious calcifications are identified. There are benign postsurgical changes in the right breast. us María Dinero APRN IMG MAMMOGRAPHY ORDERABLES F inal Result * NM Bone Mineral Density Both Hips [...] Bone mineral density was obtained using Hologic pewh-whdkuzG-uft absorptiometry. Findings: The findings are provided in [...] with the final report. María Dinero APRN IMG DXA ORDERABLES Final Res ult after 11/14/2023 Insurance MEDICARE PPO MEDICARE PPO Care Teams Silo Tender Relationship Specialty Start Date End Date Atul Villa MD [address] [place] [id number] [email or web address] PCP - External Referring Internal Medicine 01/11/16 Lesley Robin MD [address] [place] [id number] [email or web address] PCP - General Surgical Oncology 02/18/16 Lesley Robin MD [address] [place] [id number] [email or web address] Surgeon Surgical Oncology 02/18/16 Jericho Glover MD [address] [place] [phone] [email or web address] Physician Medical Oncology 02/18/16 María Dinero APRN [address] [place] [phone] [email or web address] Nurse Practitioner Breast Medical Oncology 12/23/21 Yenifer Young MD [address] [place] [id number] [email or web address] Consulting Physician Radiation Oncology 02/21/16
[2024-11-13] MEDS ORDERED: NITROGLYCERIN 0.4 MG/TAB SL ONE (18:05)
[2024-11-13] MEDS ORDERED: ASPIRIN 81 MG CHEWABLE TABLET ONE (18:05)
[2024-11-13] MEDS ORDERED: NA CHLORIDE 0.9% 1,000 ML ONE (18:18)
[2024-11-13] MEDS ORDERED: NOREPINEPHRINE BITARTRATE/D5W 0 MG/0 ML BAG IV ONE (18:18)
--- NOTE | 2024-11-13 18:18 | RAD REPORT ---
EXAM: Chest Single View HISTORY: 78 years Female CHEST PAIN COMPARISON: 03/16/2024 FINDINGS: LUNGS/PLEURA: The lungs are clear. No pleural effusions or pneumothorax. No pulmonary edema. CARDIAC/MEDIASTINUM: The cardiac silhouette is within normal limits. UPPER ABDOMEN: No significant abnormality. BONES: No acute abnormality. LINES/TUBES/OTHER: N/A IMPRESSION: No evidence of acute cardiopulmonary disease.
[2024-11-13 18:54] LABS: Absolute Basophils 0.1 K/uL (0-0.5); Absolute Eosinophils 0.2 K/uL (0-0.5); Absolute Lymphocytes (CBC) 3.8 K/uL (0.7-4.9); Absolute Monocytes 1.2 K/uL (0.1-1.3); Basophils % 0.4 % (0-1.3); Eosinophils % 1.2 % (0-4.4); Hematocrit 41.8 % (36.0-45.0); Hemoglobin 13.7 g/dL (12.0-15.0); Lymphocytes % 26.6 % (15.3-44.8); MCH 28.6 pg (27.0-35.0); MCHC 32.8 g/dL (32.0-36.0); MCV 87.3 fL (80-100); MPV 8.4 fL (7.6-11.3); Monocytes % 8.3 % (3.3-12.3); Neutrophils % 63.5 % (41.7-73.7); Nucleated Red Blood Cells % 0.1 % (0-0); Platelets 288 thou/uL (152-406); RBC Red Blood Cell Count 4.78 M/uL (3.86-4.86); Red Cell Distribution Width 15.3 % (12.1-15.2)
[2024-11-13 19:12] LABS: ALT/SGPT 34 U/L (13-56); AST/SGOT 13 U/L (15-37); Albumin 3.7 g/dL (3.4-5.0); Albumin/Globulin Ratio 1.1 (1.1-1.8); Alkaline Phosphatase 115 U/L (45-117); Anion Gap 8.8 mEq/L (5.0-15.0); BUN Blood Urea Nitrogen 28 mg/dL (7-18); Bicarbonate 27 mEq/L (21-32); Bilirubin Total 0.3 mg/dL (0.2-1.0); Globulin 3.3 g/dL (2.3-3.5); Glomerular Filtration Rate 51 ml/min (=/>90); Glucose Level 102 mg/dL (74-106); Magnesium 2.1 mg/dL (1.6-2.4); NT PRO-BNP 198 pg/mL (<450); Potassium 3.8 mEq/L (3.5-5.1); Sodium Level 138 mEq/L (136-145); Troponin High Sensitivity 4.3 pg/mL (<58.9)
[2024-11-13 19:16] LABS: Bilirubin Direct < 0.2 mg/dL (0-0.2); Bilirubin Indirect, Calculated 0.1 mg/dL (0.2-0.8)
[2024-11-13] MEDS ORDERED: ACETAMINOPHEN 500 MG TAB PO PRN (19:50)
[2024-11-13] MEDS ORDERED: ENOXAPARIN 80 MG/0.8 ML SQ ONE (19:59)
--- NOTE | 2024-11-13 20:02 | ER ---
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 BP 183/102 at home. Coronavirus ll1 screen: Client denies travel out of the [place] in the last 14 days. At this time, the client does not indicate any symptoms associated with coronavirus-19. Ebola Screen: Patient denies travel to an Ebola-affected area in the 21 days before illness onset. Initial Sepsis Screen: Does the patient meet any 2 criteria? No. Patient's initial sepsis screen is negative. Does the patient have a suspected source of infection? No. Patient's initial sepsis screen is negative. Risk Assessment: Do you want to hurt yourself or someone else? Patient reports no desire to harm self or others. Onset of symptoms was November 13, 2024. 17:56 Method Of Arrival: Wheelchair ll1 17:56 Acuity: BINTA 2 ll1 Triage Assessment: 17:58 General: Appears distressed, uncomfortable, Behavior is cooperative, appropriate for 2 age. Pain: Complains of pain in chest Pain currently is 8 out of 10 on a pain scale. Quality of pain is described as pressure, Pain began 30 min ago. Cardiovascular: Reports chest pain, fatigue, lightheadedness, shortness of breath. Historical: - Allergies: 17:56 Morphine (Respiratory distress); ll1 - PMHx: 17:56 Hypertension; CVA; Hyperlipidemia; Myocardial infarction; neuropathy pain; ll1 - PSHx: 17:56 hysterectomy (neuropathy pain); back surgery (neuropathy pain); ll1 - Immunization history:: Adult Immunizations up to date. - Social history:: Smoking status: Patient denies any tobacco usage or history of. - History obtained from: spouse. Screenin:13 [facility] ED Fall Risk Assessment (Adult) History of falling in the last 3 months, bp including since admission No falls in past 3 months (0 pts) Confusion or Disorientation No (0 pts) Intoxicated or Sedated No (0 pts) Impaired Gait No (0 pts) Mobility Assist Device Used No (0 pt) Altered Elimination No (0 pt) Score/Fall Risk Level 0 - 2 = Low Risk Oriented to surroundings. Abuse screen: Denies threats or abuse. Denies injuries from another. Nutritional screening: No deficits noted. Tuberculosis screening: No symptoms or risk factors identified. Assessment: 18:14 Pain: Complains of pain in chest Pain does not radiate. bp 18:14 Reassessment: PT ABRUPTLY DIAPHORETIC AND PALE, HYPOTENSION AND BRADYCARDIA ON MONITOR. bp MD NOTIFIED AND AT B/S FOR RE-EVAL. 18:58 Reassessment: Patient is alert, oriented x 3, equal unlabored respirations, skin bp warm/dry/pink. Patient states symptoms have improved. 19:10 Reassessment: Patient and/or family updated on plan of care and expected duration. Pain br2 level reassessed. Patient is alert, oriented x 3, equal unlabored respirations, skin warm/dry/pink. Patient denies pain at this time. Patient states feeling better. Patient states symptoms have improved. Pain: Denies pain. 22:03 Reassessment: Patient and/or family updated on plan of care and expected duration. Pain br2 level reassessed. Patient is alert, oriented x 3, equal unlabored respirations, skin warm/dry/pink. Patient states feeling better. Patient states symptoms have improved. Vital Signs: 17:56 BP 202 / 91; Pulse 51; Resp 17; Temp 97.9; Pulse Ox 99% ; Weight 83.91 kg; Height 5 ft. ll1 3 in. ; Pain 8/10; 18:00 BP 193 / 96; Pulse 56; Resp 14; Pulse Ox 100% ; bp 18:15 BP 79 / 57; Pulse 54; Resp 14; Pulse Ox 95% ; bp 18:27 BP 88 / 62; Pulse 54; Resp 14; Pulse Ox 95% ; bp 18:58 BP 163 / 73; Pulse 60; Resp 13; Pulse Ox 97% ; bp 19:44 BP 174 / 65; Pulse 60; Resp 15; Pulse Ox 100% ; Pain 0/10; br2 20:43 BP 160 / 80; Pulse 63; Resp 18 S; Pulse Ox 98% on R/A; Pain 0/10; br2 22:02 BP 150 / 76; Pulse 62; Resp 18; Pulse Ox 95% ; br2 23:26 BP 143 / 76; Pulse 64; Resp 18; Pulse Ox 98% on R/A; br2 17:56 Body Mass Index 32.77 (83.91 kg, 160.02 cm) ll1 17:56 Pain Scale: Adult ll1 19:44 Pain Scale: Adult br2 20:43 Pain Scale: Adult br2 ED Course: 17:51 Patient arrived in ED. im 17:51 Alexis Schroeder, RN is Primary Nurse. bp 17:52 Robles Roach is Attending Physician. ci 17:55 Arm band placed on Patient placed in an exam room, on a stretcher. ll1 17:57 Triage completed. ll1 18:10 XRAY Chest (1 view) In Process Unspecified. EDMS 18:13 Patient has correct armband on for positive identification. Placed in gown. Bed in low bp position. Call light in reach. Client placed on continuous cardiac and pulse oximetry monitoring. NIBP monitoring applied. surveillance system monitor on. Pulse ox on. NIBP on. 18:13 Initial lab(s) drawn, by me, sent to lab. EKG done, by ED staff, reviewed by Robles Roach. Inserted saline lock: 22 gauge in right antecubital area, using aseptic technique. Blood collected. Flushed with 10 mL NS. Patient maintains SpO2 saturation greater than 95% on room air. 19:00 Report received from FRANCIA BLANCO AND FRANCIA LEYVA. br2 19:46 Blood Culture Adult (2) Sent. br2 19:46 Lactate w/ 2H reflex if indic. Sent. br2 19:58 D-Dimer Sent. af3 20:01 Atul Villa MD is Hospitalizing Provider. ci 20:48 Primary Nurse role handed off by Alexis Schroeder, FRANCIA rv1 23:27 No provider procedures requiring assistance completed. Patient admitted, IV remains in br2 place. Administered Medications: 18:13 Drug: Aspirin PO Chewable Tablet 324 mg PO once; 81 mg tablets x 4 Route: PO; bp 18:29 Follow up: Response: No adverse reaction bp 18:13 Drug: Nitroglycerin Sublingual 0.4 mg Sublingual once Route: Sublingual; bp 18:29 Follow up: Response: No adverse reaction bp 18:15 Drug: NS 0.9% IV 500 ml IV at bolus once; to be given as a bolus over 30 minutes Route: bp IV; Rate: bolus; Site: right forearm; 19:46 Follow up: Response: No adverse reaction; IV Status: Completed infusion; IV Intake: br2 500ml 20:20 Drug: Enoxaparin Sub-Q 1 mg/kg Sub-Q once Route: Sub-Q; Site: right lower abdomen; br2 Intake: 19:46 IV: 500ml; Total: 500ml. br2 Outcome: 20:01 Decision to Hospitalize by Provider. ci 23:27 Admitted to Med/surg accompanied by tech, via wheelchair, room 203, br2 23:27 Condition: improved 23:27 Instructed on the need for admit, Demonstrated understanding of instructions, 23:29 Patient left the ED. br2 Signatures: Dispatcher [employer] EDMS Alexis Schroeder RN Alecia Koehler RN RN ll1 Neisha Ferrari rv1 Mechelle Rider Robles Roach Belinda RN RN br2 Shahida Perkins3 Corrections: (The following items were deleted from the chart) 18:28 18:14 General: Appears in no apparent distress. uncomfortable, Behavior is cooperative, bp appropriate for age, anxious, bp 18:28 18:14 Pain: Complains of pain in chest Pain does not radiate. bp bp 20:38 20:38 Enoxaparin Sub-Q 83.91 mg Sub-Q in right lower abdomen br2 br2
--- NOTE | 2024-11-13 20:02 | EDPHYS ---
Physician Documentation [facility] Name: Maribell Galindo Age: 78 yrs Sex: Female : 1945 Arrival Date: 11/13/2024 Time: 17:50 Bed 2 Private MD: ED Physician Robles Roach HPI: 11/13 18:00 This 78 yrs old Female presents to ER via Wheelchair with complaints of Chest Pain, ci Nausea. 18:00 Patient is a 78-year-old female with PMH [place], hypertension, hyperlipidemia, CVA who ci presents to the ED with chief complaint of midsternal chest pain that radiates to the left jaw. Chest pain began 30 minutes ago while she was sitting working. Dyspneic with minimal exertion, did have some nausea and slight diaphoresis. Denies any pedal edema. No cough, fever. Historical: - Allergies: 17:56 Morphine (Respiratory distress); ll1 - PMHx: 17:56 Hypertension; CVA; Hyperlipidemia; Myocardial infarction; neuropathy pain; ll1 - PSHx: 17:56 hysterectomy (neuropathy pain); back surgery (neuropathy pain); ll1 - Immunization history:: Adult Immunizations up to date. - Social history:: Smoking status: Patient denies any tobacco usage or history of. - History obtained from: spouse. ROS: 18:00 Constitutional: Negative for fever, chills, and weight loss, ci 18:00 Cardiovascular: Positive for chest pain, 18:00 Respiratory: Positive for dyspnea on exertion, 18:00 Abdomen/GI: Positive for nausea, Negative for abdominal pain, vomiting, Exam: 18:00 Constitutional: This is a well developed, well nourished patient who is awake, alert, ci and in no acute distress. Head/Face: Normocephalic, atraumatic. Eyes: Pupils equal round and reactive to light, extra-ocular motions intact. Lids and lashes normal. Conjunctiva and sclera are non-icteric and not injected. Cornea within normal limits. Periorbital areas with no swelling, redness, or edema. ENT: Nares patent. No nasal discharge, no septal abnormalities noted. Tympanic membranes are normal and external auditory canals are clear. Oropharynx with no redness, swelling, or masses, exudates, or evidence of obstruction, uvula midline. Mucous membranes moist. Neck: Trachea midline, no thyromegaly or masses palpated, and no cervical lymphadenopathy. Supple, full range of motion without nuchal rigidity, or vertebral point tenderness. No Meningismus. Chest/axilla: Normal chest wall appearance and motion. Nontender with no deformity. No lesions are appreciated. Cardiovascular: Regular rate and rhythm with a normal S1 and S2. No gallops, murmurs, or rubs. Normal PMI, no JVD. No pulse deficits. Respiratory: Lungs have equal breath sounds bilaterally, clear to auscultation and percussion. No rales, rhonchi or wheezes noted. No increased work of breathing, no retractions or nasal flaring. Abdomen/GI: Soft, non-tender, with normal bowel sounds. No distension or tympany. No guarding or rebound. No evidence of tenderness throughout. Back: No spinal tenderness. No costovertebral tenderness. Full range of motion. Skin: Warm, dry with normal turgor. Normal color with no rashes, no lesions, and no evidence of cellulitis. MS/ Extremity: Pulses equal, no cyanosis. Neurovascular intact. Full, normal range of motion. Neuro: Awake and alert, GCS 15, oriented to person, place, time, and situation. Cranial nerves II-XII grossly intact. Motor strength 5/5 in all extremities. Sensory grossly intact. Cerebellar exam normal. Normal gait. Vital Signs: 17:56 BP 202 / 91; Pulse 51; Resp 17; Temp 97.9; Pulse Ox 99% ; Weight 83.91 kg; Height 5 ft. ll1 3 in. ; Pain 8/10; 18:00 BP 193 / 96; Pulse 56; Resp 14; Pulse Ox 100% ; bp 18:15 BP 79 / 57; Pulse 54; Resp 14; Pulse Ox 95% ; bp 18:27 BP 88 / 62; Pulse 54; Resp 14; Pulse Ox 95% ; bp 18:58 BP 163 / 73; Pulse 60; Resp 13; Pulse Ox 97% ; bp 19:44 BP 174 / 65; Pulse 60; Resp 15; Pulse Ox 100% ; Pain 0/10; br2 20:43 BP 160 / 80; Pulse 63; Resp 18 S; Pulse Ox 98% on R/A; Pain 0/10; br2 22:02 BP 150 / 76; Pulse 62; Resp 18; Pulse Ox 95% ; br2 23:26 BP 143 / 76; Pulse 64; Resp 18; Pulse Ox 98% on R/A; br2 17:56 Body Mass Index 32.77 (83.91 kg, 160.02 cm) ll1 17:56 Pain Scale: Adult ll1 19:44 Pain Scale: Adult br2 20:43 Pain Scale: Adult br2 MDM: 17:52 Medical Screening Exam initiated ci 18:00 Differential diagnosis: acute myocardial infarction, coronary artery disease congestive ci heart failure costochondritis, esophagitis, myocarditis, pneumonia, pneumothorax, pulmonary embolus, thoracic aortic disection, unstable angina. The patient was given aspirin in the Emergency Department. Data reviewed: vital signs, nurses notes. ED course: Patient presents with midsternal chest pain, story is concerning for cardiac chest pain. Will obtain cardiac labs, likely admit to obs for management. Noted to be hypertensive with blood pressure 202/91, questionable hypertensive urgency/emergency. Given 1 nitro in the ED, will reassess and administer hydralazine if no improvement.. 18:00 ED course: EKG shows sinus bradycardia, heart rate 52, no acute ischemic changes, QTc ci 394. 18:54 ED course: Patient became hypotensive after 1 nitro, BP 88/62, IV fluids started, ci repeat blood pressure 163/73. Patient reports chest pains improved.. 19:18 HEART Score: History: Highly Suspicious (2), ECG: Non specific repolarization ci disturbance / LBTB / PM (1), Age: > or = 65 years (2), Risk Factors: > or = 3 Risk factors for atherosclerotic disease (2), Troponin: < or = 1 x Normal Limit (0), Total Score = 8. ED course: Patient has a high heart score, cardiology consulted, will admit for ACS rule out, will repeat troponin.. 19:25 ED course: Dr. Balderas cardiology paged. ci 19:43 ED course: Discussed with Dr. Crawford, cardiology recommendations for n.p.o. after ci midnight, one-time dose of Lovenox 1 mg/kg x 1 now and hold Lovenox until after cath. Discussed with Dr. Villa who accepted patient for admission to cardiac telemetry. 11/13 18:00 Order name: Basic Metabolic Panel; Complete Time: 19:18 ci 11/13 18:00 Order name: CBC with Diff; Complete Time: 19:01 ci 04 19:01 Interpretation: Abnormal: WBC 14.20. ci 04 18:00 Order name: LFT's; Complete Time: 19:18 ci 04 18:00 Order name: Magnesium; Complete Time: 19:18 ci 04 18:00 Order name: NT PRO-BNP; Complete Time: 19:18 ci 11/13 18:00 Order name: Troponin HS; Complete Time: 19:18 ci 04 19:18 Interpretation: Within normal limits. ci 04 19:03 Order name: Blood Culture Adult (2) ci 11/13 19:03 Order name: Lactate w/ 2H reflex if indic.; Complete Time: 20:34 ci 11/13 19:41 Order name: D-Dimer; Complete Time: 20:34 ci 11/13 20:00 Order name: Basic Metabolic Panel EDMS 11/13 20:00 Order name: Basic Metabolic Panel EDMS 11/13 20:00 Order name: CBC with Automated Diff EDMS 11/13 20:00 Order name: CBC with Automated Diff EDMS 11/13 20:00 Order name: Troponin High Sensitivity EDMS 11/13 18:00 Order name: XRAY Chest (1 view); Complete Time: 18:43 ci 11/13 19:01 Interpretation: No acute disease. ci 11/13 18:00 Order name: EKG; Complete Time: 18:00 ci 11/13 19:02 Interpretation: Abnormal: Sinus bradycardia, HR 52, QTC 394. ci 04 18:58 Order name: EKG; Complete Time: 18:58 bp 11/13 20:00 Order name: CONS Physician Consult EDMS 11/13 20:00 Order name: EKG Electrocardiogram EDMS 11/13 20:00 Order name: EKG Electrocardiogram EDMS 11/13 20:00 Order name: EKG Electrocardiogram EDMS 11/13 20:00 Order name: EKG Electrocardiogram EDMS 11/13 18:00 Order name: Cardiac monitoring; Complete Time: 18:00 ci 11/13 18:00 Order name: EKG - Nurse/Tech; Complete Time: 18:00 ci 11/13 18:00 Order name: IV Saline Lock; Complete Time: 18:13 ci 11/13 18:00 Order name: Labs collected and sent; Complete Time: 18:13 ci 11/13 18:00 Order name: O2 Per Protocol; Complete Time: 18:00 ci 11/13 18:00 Order name: O2 Sat Monitoring; Complete Time: 18:00 ci 11/13 18:58 Order name: EKG - Nurse/Tech; Complete Time: 19:58 bp Administered Medications: 18:13 Drug: Aspirin PO Chewable Tablet 324 mg PO once; 81 mg tablets x 4 Route: PO; bp 18:29 Follow up: Response: No adverse reaction bp 18:13 Drug: Nitroglycerin Sublingual 0.4 mg Sublingual once Route: Sublingual; bp 18:29 Follow up: Response: No adverse reaction bp 18:15 Drug: NS 0.9% IV 500 ml IV at bolus once; to be given as a bolus over 30 minutes Route: bp IV; Rate: bolus; Site: right forearm; 19:46 Follow up: Response: No adverse reaction; IV Status: Completed infusion; IV Intake: br2 500ml 20:20 Drug: Enoxaparin Sub-Q 1 mg/kg Sub-Q once Route: Sub-Q; Site: right lower abdomen; br2 Disposition Summary: 11/13/24 20:01 Hospitalization Ordered Notes: Hospitalization Status: Inpatient Admission ci Provider: Atul Villa Location: Telemetry/MedSurg (Inpatient) ci Condition: Stable ci Problem: new ci Symptoms: are unchanged ci Bed/Room Type: Standard ci Room Assignment: 203(11/13/24 22:46) rv1 Diagnosis - Chest pain, unspecified ci - Hypertensive heart disease without heart failure ci Forms: - Medication Reconciliation Form ci - SBAR form ci - Leadership Thank You Letter ci Signatures: Dispatcher [employer] EDAlexis Ojeda, RN RN Alecia Marley RN RN ll1 Neisha Ferrari rv1 Robles Roach Belinda RN RN br2 Corrections: (The following items were deleted from the chart) 19:03 19:03 BLOOD CULTURE*+BA.LAB.BRZ ordered. EDMS EDMS 19:03 19:03 LACTATE+C.LAB.BRZ ordered. EDMS EDMS 19:42 19:42 D-DIMER+COAG.LAB.BRZ ordered. EDMS EDMS 22:46 20:01 ci rv1
[2024-11-14 00:27] VITALS: BMI 34.2
[2024-11-14] MEDS: FLU (Fluarix Triv) TS24-25(6MOS UP)/PF 45 MCG/0.5 ML Syringe IM ONE (07:30)
[2024-11-14 07:49] LABS: Absolute Eosinophils 0.3 K/uL (0-0.5); Absolute Lymphocytes (CBC) 2.6 K/uL (0.7-4.9); Absolute Monocytes 0.8 K/uL (0.1-1.3); Absolute Neutrophil 5.8 K/uL (1.8-8.0); Basophils % 0.5 % (0-1.3); Eosinophils % 2.9 % (0-4.4); Hematocrit 39.1 % (36.0-45.0); Hemoglobin 13.1 g/dL (12.0-15.0); Lymphocytes % 26.9 % (15.3-44.8); MCH 28.9 pg (27.0-35.0); MCHC 33.4 g/dL (32.0-36.0); MCV 86.5 fL (80-100); MPV 8.4 fL (7.6-11.3); Monocytes % 8.5 % (3.3-12.3); Neutrophils % 61.2 % (41.7-73.7); Platelets 259 thou/uL (152-406); RBC Red Blood Cell Count 4.52 M/uL (3.86-4.86); Red Cell Distribution Width 15.6 % (12.1-15.2)
[2024-11-14 08:02] LABS: Anion Gap 9.5 mEq/L (5.0-15.0); Potassium 4.5 mEq/L (3.5-5.1)
--- NOTE | 2024-11-14 08:36 | P.CNS ---
Date of Consult: 11/14/24 Chief Complaint: chest pain History of Present Illness: Patient with no significant PMH presented with chest pain that started yesterday, felt like neck tightness, went down across her chest lasted few minutes, denies any other cardiac symptoms. Allergies morphine Adverse Reaction (Unverified 11/14/24 00:29) Unknown Home medications list reviewed: Yes - Social History Alcohol use: Yes Caffeine use: Yes Place of Residence: Home Review of Systems 10-point ROS is otherwise unremarkable Physical Examination Temp Pulse Resp BP Pulse Ox 97.7 F 63 16 134/69 95 11/14/24 05:09 11/14/24 05:09 11/14/24 05:09 11/14/24 05:09 11/14/24 05:09 General: Alert, In no apparent distress HEENT: Atraumatic, PERRLA, Mucous membr. moist/pink, EOMI, Sclerae nonicteric Neck: Supple, 2+ carotid pulse no bruit, No LAD, Without JVD or thyroid abnormality Respiratory: Clear to auscultation bilaterally, Normal air movement Cardiovascular: Regular rate/rhythm, Normal S1 S2 Gastrointestinal: Normal bowel sounds, No tenderness Musculoskeletal: No tenderness Integumentary: No rashes Neurological: Normal gait, Normal speech, Normal tone, Normal affect Lymphatics: No axilla or inguinal lymphadenopathy Laboratory Data (last 24 hrs) 11/13/24 11/13/24 18:12 18:12 WBC 14.20 H Hgb 13.7 Hct 41.8 Plt Count 288 Sodium 138 Potassium 3.8 BUN 28 H Creatinine 1.11 H Glucose 102 Magnesium 2.1 Total Bilirubin 0.3 AST 13 L ALT 34 Alkaline Phosphatase 115 - Problems (1) Chest pain Current Visit: Yes Status: Acute Plan: concern for unstable angina, will do coronary angiogram. get echo ASA 81 mg daily Crestor 20 mg daily (2) HTN (hypertension) Current Visit: Yes Status: Acute Plan: patient BP was high when she came in, better now, will continue to monitor (3) JELANI (acute kidney injury) Current Visit: Yes Status: Acute Plan: resolved, most likely secondary to high BP.
[2024-11-14] MEDS ORDERED: ENOXAPARIN 80 MG/0.8 ML SQ SCH (09:00)
[2024-11-14 10:29] LABS: PT Prothrombin Time 12.1 SECONDS (10-13.0); PTT, Activated Partial Thromb 34.8 SECONDS (27.2-37.4); Protime INR 1.06
[2024-11-14 11:10] VITALS: TEMP 97.5
[2024-11-14] MEDS ORDERED: HEPA 1000U/500MLS 2,000 UNIT/1,000 ML BAG IV ONE (11:59)
[2024-11-14] MEDS ORDERED: CLOPIDOGREL 75 MG TABLET ONE (12:00)
[2024-11-14] MEDS ORDERED: HEPARIN 5000 UNIT/ML 1 ML VIAL ONE (12:00)
[2024-11-14] MEDS ORDERED: LIDOCAINE 1% 20 ML MDV ONE (12:00)
[2024-11-14] MEDS ORDERED: HEPARIN 10,000 UNIT/10 ML VIAL IV ONE (12:00)
[2024-11-14] MEDS ORDERED: ATROPINE SULF 1 MG/10 ML SYR IV ONE (12:00)
[2024-11-14] MEDS ORDERED: TICAGRELOR 90 MG TABLET PO ONE (12:01)
[2024-11-14] MEDS ORDERED: ASPIRIN 325 MG TAB ONE (12:01)
[2024-11-14] MEDS ORDERED: NA CHLORIDE 0.9% 500 ML ONE (12:26)
[2024-11-14] MEDS ORDERED: MIDAZOLAM HCL 2 MG/2 ML INJ ONE (12:35)
[2024-11-14] MEDS ORDERED: FENTANYL CITR 100 MCG/2 ML ONE (12:35)
--- NOTE | 2024-11-14 13:19 | EKG ---
Test Date: 2024-11-14 Test Time: 05:43:56 [employer] Caul[employer] Supervisor: SIRENA MEASUREMENT RESULTS: Intervals: Rate: 62 [place]: 166 QRSD: 76 QT: 424 QTc: 430 [place]: P: 43 [place]: 166 QRS: -2 T: 48 INTERPRETIVE STATEMENTS: Sinus rhythm with premature atrial complexes Otherwise normal ECG Compared to ECG 11/13/2024 19:52:23 Atrial premature complex(es) now present Sinus bradycardia no longer present Sinus arrhythmia no longer present Ventricular premature complex(es) no longer present Electronically Signed On 11-14-24 13:18:29 CDT by Palomo Balderas
[2024-11-14] MEDS ORDERED: PNEUMOCOCCAL VACCINE 0.5 ML IMVAC ONE (15:00)
[2024-11-14 15:44] VITALS: BP 140/74; O2SAT 98
--- NOTE | 2024-11-14 17:11 | P.SSS ---
Patient History Date of Service: 11/14/24 Reason for admission: chest pain History of Present Illness: WILLIE IS A PATIENT WITH HTN AND HISTORY OF TIA COMES WITH CHEST PAIN AFTER MINIMAL EXERSION. PAIN HAS NO RADIATION, TROP ENZYMES ARE NEGATIVE. SHE CHOSE OPTION FOR CATH AND CATH WAS DONE TODAY THAT WAS NEGATIVE. SHE IS STABLE TO GO HOME WITH NO CHANGES IN MEDS FOR NOW. Allergies morphine Allergy (Severe, Verified 11/14/24 13:36) Shortness of breath Home medications list reviewed: Yes - Past Medical/Surgical History Has patient received pneumonia vaccine in the past: Yes - Social History Smoking Status: Never smoker Alcohol use: Yes Caffeine use: Yes Place of Residence: Home Review of Systems 10-point ROS is otherwise unremarkable General: Weakness Physical Examination - Vital Signs Temperature: 97.5 F Blood Pressure: 140/74 Pulse: 66 Respirations: 17 Pulse Ox (%): 99 - Physical Exam General: Oriented x3, Mild distress HEENT: Atraumatic, PERRLA, Mucous membr. moist/pink, EOMI, Sclerae nonicteric Neck: Supple, 2+ carotid pulse no bruit, No LAD, Without JVD or thyroid abnormality Respiratory: Clear to auscultation bilaterally, Normal air movement Cardiovascular: Regular rate/rhythm, Normal S1 S2 Gastrointestinal: Normal bowel sounds, No tenderness Musculoskeletal: No tenderness Integumentary: No rashes Neurological: Normal gait, Normal speech, Normal strength at 5/5 x4 extr, Normal tone, Normal affect Lymphatics: No axilla or inguinal lymphadenopathy - Studies Laboratory Data (last 24 hrs) 11/13/24 11/13/24 18:12 18:12 WBC 14.20 H Hgb 13.7 Hct 41.8 Plt Count 288 Sodium 138 Potassium 3.8 BUN 28 H Creatinine 1.11 H Glucose 102 Magnesium 2.1 Total Bilirubin 0.3 AST 13 L ALT 34 Alkaline Phosphatase 115 - Diagnosis (Problem(s)) (1) Atypical chest pain Current Visit: Yes Status: Acute Plan: CATH NEG RESUME SAME MEDS BEFORE. FOLLOWING IS THE HISTORY OF THE PATIENT FROM OUR OFFICE RECORDS. Clinical Profile Patient Name: Maribell Galindo : 1945; 78 yrs, 10 mo at the time of printing this document Sex at : Female Cared for by Atul Villa M.D. Allergies Amoxicillin-Pot Clavulanate = DIARRHEA Topiramate = DEPRESSION Drug Intolerances Amoxicillin-Pot Clavulanate = DIARRHEA Problem List 2017 HTN (hypertension) 2012 History of CVA (cerebrovascular accident) without residual deficits L SIDE PARALYSES IN BATHROOM, TAKEN TO [facility], DR. JORDAN 2017 Breast cancer 2018 Dyslipidemia 2018 Cervical radicular pain 2019 Radiculitis, lumbosacral 2021 Charcot's joint, right ankle and foot 2023 Macular degeneration 2023 Obesity (BMI 30.0-34.9) 2020 COVID -- resolved on 12/12/2022 ALMOST NORMAL NOW 2021 COVID -- resolved on 12/12/2022 Past Medical History NORMAL BONE DENSITY. 2022, MDA. Past Surgical History L MRM- DR GAVIN, MDA CANCER, RADIATION ALOSO HYST LAMINECTOMY DR GIRON 2002 Family History Mother: HTN, HIGH CH, ASTHMA, Father: HTN, DM, HIGH CH, PROSTHETIC VALVE Cigs Never smoker (as of: 09/16/2017) Permanent Rx Medications amLODIPine Besylate 5 mg Tab TAKE 1 TABLET BY MOUTH EVERY DAY (started on 02/2021) Bisoprolol Fumarate 5 mg Tab TAKE ONE TABLET BY MOUTH EVERY DAY (started on 02/2021) Clopidogrel Bisulfate 75 mg Tab TAKE 1 TABLET BY MOUTH EVERY DAY (started on 11/2019) Gabapentin 400 mg Cap TAKE 1 CAPSULE BY MOUTH THREE TIMES DAILY (started on 07/2024) Pantoprazole Sodium 40 mg Tab delayed rel ONE PO ONCE DAILY ONE HOUR BEFORE FOOD DAILY IN AM (started on 01/2024) Rosuvastatin Calcium 40 mg Tab TAKE 1 TABLET BY MOUTH EVERY DAY WITH A MEAL (started on 04/2024) - Disposition Disposition: ROUTINE DISCHARGE Condition: FAIR
--- NOTE | 2024-11-14 20:20 | OP ---
Date of Procedure: 11/14/2024 Surgeon: Palomo Balderas Procedures Performed: 1. Selective coronary angiogram. 2. Left heart catheterization. Indication For Procedure: Unstable angina. Complications: None. Estimated Blood Loss: Less than 50 cc. Access: Right radial, closed by TR band. Sedation Time: 20 minutes with 1 of Versed and 50 of fentanyl. Description Of Procedure: After risks, benefits, and alternatives were explained to the patient, pat ient agreed to proceed with procedure and signed informed consent. [facility], prepped and draped in sterile fashion. Time-out was performed. Sedation was administer ed. Next, right radial access was obtained using ultrasound-guided micropuncture technique. Holland 4 catheter was advanced over a J-wire to the LV cavity. LVEDP was obtained. Pullback did not show an y gradient. Same catheter was used for selective angiogram of the left and right coronary systems. At the end of procedure, catheter was removed over a J-wire. Sheath was removed. TR band was applie d. Hemostasis was achieved and patient was moved to recovery in stable condition. Findings: 1. Left main: Normal. 2. LAD: Large mild luminal regularities with mid to distal to 20% disease and mild luminal irregular ities. 3. Left circumflex: Dominant with mild luminal irregularities. 4. RCA: Small, nondominant. Mild luminal irregularities. 5. LVEDP 11 mmHg. Assessment And Plan: 1. Normal coronaries. 2. Normal filling pressure. 3. Continue medical management. TIMO/RACHAEL Voice ID: [id number] Report ID: [id number]
--- NOTE | 2024-11-18 11:01 | EKG ---
Test Date: 2024-11-13 Test Time: 19:52:23 Horizontal Boring Mill Set Up Operator: AF MEASUREMENT RESULTS: Intervals: Rate: 55 [place]: 168 QRSD: 74 QT: 434 QTc: 415 [place]: P: 55 [place]: 168 QRS: -2 T: 37 INTERPRETIVE STATEMENTS: Sinus bradycardia with marked sinus arrhythmia with occasional premature ventricular complexes Otherwise normal ECG Compared to ECG 11/13/2024 17:58:07 Ventricular premature complex(es) now present Left ventricular hypertrophy no longer present Electronically Signed On 11-18-24 10:56:26 CDT by Palomo Balderas
--- NOTE | 2024-11-18 11:01 | EKG ---
Test Date: 2024-11-13 Test Time: 17:58:07 Political Scientist: ASHANTI MEASUREMENT RESULTS: Intervals: Rate: 52 [place]: 158 QRSD: 76 QT: 424 QTc: 394 [place]: P: 43 [place]: 158 QRS: -9 T: 54 INTERPRETIVE STATEMENTS: Sinus bradycardia Moderate voltage criteria for LVH, may be normal variant Borderline ECG Compared to ECG 03/16/2024 11:46:30 Left ventricular hypertrophy now present Sinus rhythm no longer present Left-axis deviation no longer present Electronically Signed On 11-18-24 10:56:32 CDT by Palomo Balderas
== END 2024-11-14 17:23 | disposition home or self-care (01) ==
LOC: ER 17:50 → ERHOLD 21:17 → 2ND 23:20
PROVIDERS: ADMIT Internal Medicine; ATTEND Internal Medicine
PROC: 4A023N7 Measurement of Cardiac Sampling and Pressure, Left Heart, Percutaneous Approach (ICD-10-PCS; principal; 2024-11-13)
PROC: B2111ZZ Fluoroscopy of Multiple Coronary Arteries using Low Osmolar Contrast (ICD-10-PCS; 2024-11-13)
DX: R07.89 Other chest pain (principal); N17.9 Acute kidney failure, unspecified; I11.9 Hypertensive heart disease without heart failure; R53.1 Weakness; E78.5 Hyperlipidemia, unspecified; Z86.73 Personal history of transient ischemic attack (TIA), and cerebral infarction without residual deficits; Z85.3 Personal history of malignant neoplasm of breast; Z88.5 Allergy status to narcotic agent; Z88.0 Allergy status to penicillin; Z82.49 Family history of ischemic heart disease and other diseases of the circulatory system; Z83.3 Family history of diabetes mellitus
CPT/HCPCS: 96361; 93005 ×3; 87040 ×2; 85025 ×2; 80048 ×2; 36415; 83735; 85610; 85379; 80076; 83605; 85730; 84484 ×3; 83880; 71045; 93458; 76937; 96360; 96372; 99285; C1893; Q9966; J1644; J2003; J2250; J3010; J7040; J7030; G0378 ×4; 99152; J0461